=== PATIENT | male | born 1990 | race Caucasian/White ===

== ENCOUNTER 2022-08-27 02:00 | Emergency (ER) | payer OTHER ==
[2022-08-27] MEDS ORDERED: KETOROLAC 30 MG/ML INJ ONE (02:26)
[2022-08-27 02:55] LABS: Protime INR 1.34
[2022-08-27 02:57] LABS: Hematocrit 32.5 % (39.6-49.0); Lymphocytes % 31.4 % (15.3-44.8); MCV 80.8 fL (80-100); MPV 11.5 fL (7.6-11.3); RBC Red Blood Cell Count 4.02 M/uL (4.33-5.43)
[2022-08-27 03:17] LABS: Bilirubin Direct 0.8 mg/dL (0-0.2); Bilirubin Indirect, Calculated 0.9 mg/dL (0.2-0.8); Bilirubin Total 1.7 mg/dL (0.2-1.0); Magnesium 1.9 mg/dL (1.6-2.4); Potassium 3.9 mEq/L (3.5-5.1); Protein, Total 7.1 g/dL (6.4-8.2); Troponin High Sensitivity 5.7 pg/mL (<58.9)
[2022-08-27 04:06] LABS: Blood Morphology Comment NOT SEEN (NOT SEEN); Platelet Estimate DECR; White Blood Cell Scan OK (OK)
[2022-08-27] MEDS ORDERED: HYDROCORTISONE SUC 100 MG INJ ONE (05:49)
[2022-08-27] MEDS ORDERED: NA CHLORIDE 0.9% 500 ML ONE (05:50)
[2022-08-27] MEDS ORDERED: ACETAMINOPHEN 500 MG TAB ONE (05:50)
[2022-08-27] MEDS ORDERED: DIPHENHYDRAMINE 25 MG TAB/CAP ONE (05:50)
--- NOTE | 2022-08-27 06:06 | ER ---
Nurse's Notes [facility] Name: Anthony Castañeda Age: 31 yrs Sex: Male : 1990 Arrival Date: 08/27/2022 Time: 02:00 Bed 2 Private MD: Diagnosis: Thrombocytopenia, unspecified;Antiphospholipid syndrome;Atypical chest pain Presentation: 08/27 02:06 Chief complaint: EMS states: chest pain that radiates to right arm and left leg pain as6 that started around 2100 on 08/26. Coronavirus screen: At this time, the client does not indicate any symptoms associated with coronavirus-19. Ebola Screen: No symptoms or risks identified at this time. Initial Sepsis Screen: Does the patient meet any 2 criteria? No. Patient's initial sepsis screen is negative. Does the patient have a suspected source of infection? No. Patient's initial sepsis screen is negative. Risk Assessment: Do you want to hurt yourself or someone else? Patient reports no desire to harm self or others. Onset of symptoms was August 26, 2022. 02:06 Acuity: YULIET 3 as6 02:06 Method Of Arrival: EMS: [facility] as6 Historical: - Allergies: 02:06 No Known Allergies; as6 - PMHx: 02:06 thrombocytopenia; ITP; blood clots; as6 - PSHx: 02:06 Appendectomy; as6 - Immunization history:: Client reports having NOT received the Covid vaccine. - Social history:: Smoking status: Patient/guardian denies using tobacco. - Family history:: not pertinent. Screenin:11 [facility] ED Fall Risk Assessment (Adult) Score/Fall Risk Level 0 - 2 = Low Risk. Abuse as6 screen: Denies threats or abuse. Denies injuries from another. Nutritional screening: No deficits noted. Tuberculosis screening: No symptoms or risk factors identified. Assessment: 02:05 General: Appears in no apparent distress. uncomfortable, Behavior is calm, cooperative, jj7 appropriate for age. Pain: Complains of pain in xiphoid area and mid-sternal area Pain radiates to diaphragm, right lateral anterior chest and right breast. 06:22 General: Appears in no apparent distress. Behavior is calm, cooperative. Neuro: Level kd3 of Consciousness is awake, alert, obeys commands, Oriented to person, place, time, situation. Cardiovascular: Patient's skin is warm and dry. Respiratory: Airway is patent Trachea midline Respiratory effort is even, unlabored, Respiratory pattern is regular, symmetrical. GI: Abdomen is non-distended. 07:21 General: Pt awaiting transfer due to platelets not being ready. EMS waiting in the room kd3 with the patient to transfer. Platelets are being started now. will transfer patient while platelets are running. . Vital Signs: 02:06 BP 147 / 77; Pulse 96; Resp 15 S; Temp 98.5(O); Pulse Ox 100% on R/A; Weight 108.86 kg as6 (R); Height 5 ft. 5 in. (R); Pain 6/10; 03:06 BP 138 / 77; Pulse 89; Resp 16; Pulse Ox 98% on R/A; kd3 04:41 BP 138 / 90; Pulse 86; Resp 17; Pulse Ox 97% on R/A; kd3 05:50 BP 107 / 69; Pulse 86; Resp 19; Pulse Ox 98% on R/A; kd3 06:23 BP 129 / 76; Pulse 85; Resp 19; Pulse Ox 96% on R/A; kd3 02:06 Body Mass Index 39.94 (108.86 kg, 165.1 cm) as6 02:06 Pain Scale: Adult as6 ED Course: 02:05 No provider procedures requiring assistance completed. jj7 02:06 Patient arrived in ED. as6 02:06 Luca Adame MD is Attending Physician. sp4 02:06 Arm band placed on. as6 02:11 Triage completed. as6 02:11 Bed in low position. Call light in reach. Side rails up X 1. Client placed on as6 continuous cardiac and pulse oximetry monitoring. NIBP monitoring applied. 02:16 Michael Mckinnon RN is Primary Nurse. jj7 02:21 Inserted saline lock: 20 gauge in right antecubital area, using aseptic technique. as6 Blood collected. 02:30 Warm blanket given. jj7 02:35 XRAY Chest (1 view) In Process Unspecified. EDMS Administered Medications: 02:28 Drug: Ketorolac IVP 30 mg Route: IVP; Site: right antecubital; jj7 06:24 Follow up: Response: No adverse reaction kd3 05:49 Drug: Solu-CORTEF IVP 100 mg Route: IVP; Site: right antecubital; kd3 06:23 Follow up: Response: No adverse reaction kd3 05:49 Drug: Acetaminophen PO 1000 mg Route: PO; kd3 06:23 Follow up: Response: No adverse reaction kd3 05:49 Drug: diphenhydrAMINE PO 25 mg Route: PO; kd3 06:23 Follow up: Response: No adverse reaction kd3 Medication: 02:05 VIS not applicable for this client. jj7 Outcome: 06:06 ER care complete, transfer ordered by sp4 07:30 Patient left the ED. ph Signatures: Dispatcher [employer] EDKaela Saldana RN RN ph Ronnie Echavarria RN RN as6 Naomy Agustin RN RN kd3 Michael Mckinnon RN RN jj7 Luca Adame MD MD sp4
--- NOTE | 2022-08-27 06:07 | EDPHYS ---
Physician Documentation [facility] Name: Anthony Castañeda Age: 31 yrs Sex: Male : 1990 Arrival Date: 08/27/2022 Time: 02:00 Bed 2 Private MD: ED Physician Luca Adame HPI: 08/27 02:07 This 31 yrs old Other Male presents to ER via Unassigned with complaints of chest pain .sp4 05:25 31-year-old male with history of antiphospholipid syndrome and idiopathic sp4 thrombocytopenia presents with EMS with acute onset of right-sided stabbing type chest pain. . 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 Patient has been admitted to [facility] in [place], also has been admitted to the hospital in [facility], and also has history of prior admission to [facility] in [place]. In 2013 patient was diagnosed with thrombocytopenia at that time his platelet level was 14,000. 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 And in the past he was managed with warfarin and also in the past he was managed with p.o. lactulose. He has not been on any of his medications for over 1 year. Also he cannot recall any other medicines but states he has been on multiple medications in the past.. Patient has moved into [facility] approximately 1 month ago, this morning he developed right-sided stabbing type chest pain and arrived here with EMS. Patient reports mild bleeding from his gums but denied bleeding from any other body location. He does report history of easy bruising.. Historical: - Allergies: 02:06 No Known Allergies; as6 - PMHx: 02:06 thrombocytopenia; ITP; blood clots; as6 - PSHx: 02:06 Appendectomy; as6 - Immunization history:: Client reports having NOT received the Covid vaccine. - Social history:: Smoking status: Patient/guardian denies using tobacco. - Family history:: not pertinent. ROS: 05:27 Constitutional: Negative for fever, chills, and weight loss, Eyes: Negative for injury, sp4 pain, redness, and discharge, ENT: Negative for injury, pain, and discharge, positive for mild bleeding from the gums. Neck: Negative for injury, pain, and swelling, Cardiovascular: Negative for palpitations, and edema, positive for right-sided stabbing type chest pain. Respiratory: Negative for shortness of breath, cough, wheezing, and pleuritic chest pain, Abdomen/GI: Negative for abdominal pain, nausea, vomiting, diarrhea, and constipation, Back: Negative for injury and pain, : Negative for injury, bleeding, discharge, and swelling, MS/Extremity: Negative for injury and deformity, Skin: Negative for injury, rash, and discoloration, Neuro: Negative for headache, weakness, numbness, tingling, and seizure, Psych: Negative for depression, anxiety, Allergy/Immunology: Negative for hives, rash, and allergies Endocrine: Negative for neck swelling, polydipsia, polyuria, polyphagia, and weight changes Hematologic/Lymphatic: Negative for swollen nodes, abnormal bleeding, and unusual bruising Exam: 05:27 Constitutional: This is a well developed, well nourished patient who is awake, alert, sp4 and in no acute distress. This is overweight male chronic left lower extremity swelling and discoloration indicative of venous stasis skin changes. Mild bleeding from multiple sites on the gums. Otherwise no signs of active bleeding Head/Face: Normocephalic, atraumatic. Eyes: Pupils equal round and reactive to light, extra-ocular motions intact. Lids and lashes normal. Conjunctiva and sclera are not injected. Cornea within normal limits. Periorbital areas with no swelling, redness, or edema. ENT: Nares patent. No nasal discharge, no septal abnormalities noted. Tympanic membranes are normal and external auditory canals are clear. Oropharynx with no redness, swelling, or masses, exudates, or evidence of obstruction, uvula midline. Mucous membranes moist. Neck: Trachea midline, no thyromegaly or masses palpated, and no cervical lymphadenopathy. Supple, full range of motion without nuchal rigidity, or vertebral point tenderness. Chest/axilla: Normal chest wall appearance and motion. Nontender with no deformity. No lesions are appreciated. Cardiovascular: Regular rate and rhythm with a normal S1 and S2. No gallops, murmurs, or rubs. Normal PMI, no JVD. No pulse deficits. Respiratory: Lungs have equal breath sounds bilaterally, clear to auscultation and percussion. No rales, rhonchi or wheezes noted. No increased work of breathing, no retractions or nasal flaring. Abdomen/GI: Soft, non-tender, with normal bowel sounds. No distension or tympany. No guarding or rebound. No evidence of tenderness throughout. Back: No spinal tenderness. No costovertebral tenderness. Skin: Warm, dry with normal turgor. Normal color with no rashes, and no evidence of cellulitis. Positive left lower extremity venous stasis skin changes. MS/ Extremity: Pulses equal, no cyanosis. Neurovascular intact. Full, normal range of motion. Left lower extremity swelling that appears chronic with left lower extremity venous skin stasis venous stasis skin changes Neuro: Awake and alert, GCS 15, oriented to person, place, time, and situation. Cranial nerves II-XII grossly intact. Motor strength 5/5 in all extremities. Sensory grossly intact. Psych: Awake, alert, with orientation to person, place and time. Behavior, mood, and affect are within normal limits 05:27 ECG was reviewed by the Attending Physician. EKG time 0 219. There is normal sinus sp4 rhythm at the rate of 96, no ST elevation or depression, no ectopy. Vital Signs: 02:06 BP 147 / 77; Pulse 96; Resp 15 S; Temp 98.5(O); Pulse Ox 100% on R/A; Weight 108.86 kg as6 (R); Height 5 ft. 5 in. (R); Pain 6/10; 03:06 BP 138 / 77; Pulse 89; Resp 16; Pulse Ox 98% on R/A; kd3 04:41 BP 138 / 90; Pulse 86; Resp 17; Pulse Ox 97% on R/A; kd3 05:50 BP 107 / 69; Pulse 86; Resp 19; Pulse Ox 98% on R/A; kd3 06:23 BP 129 / 76; Pulse 85; Resp 19; Pulse Ox 96% on R/A; kd3 02:06 Body Mass Index 39.94 (108.86 kg, 165.1 cm) as6 02:06 Pain Scale: Adult as6 MDM: 02:07 Patient medically screened. sp4 04:28 ED course: Chest x-ray reveals no acute cardiopulmonary disease. EKG is normal today. sp4 Platelets are very low 7. . 05:41 Differential Diagnosis altered mental status, flu. Data reviewed: vital signs, nurses sp4 notes. 05:44 Consideration of Admission/Observation Patient was admitted/placed on observation. sp4 Escalation of care including admission/observation considered. Management of patient was discussed with the following: Order Editor: Admitting hospitalist at [facility].. ED course: Patient has history of antiphospholipid syndrome and also idiopathic thrombocytopenia. Patient is not able to recall any other diagnosis from his past. Patient has history of drug abuse which may have contributed to his thrombocytopenia. Today platelets are 7000 and this is quite low. Patient is have been some mild bleeding from the gingiva at multiple sites. No sign of active bleeding out of anywhere else. Hemoglobin is reasonable at 10.9. There is no prior labs for comparison. Otherwise patient has mild elevation of alkaline phosphatase at 283. Patient has elevated bilirubin 1.7. INR 1.34. Normal EKG, unremarkable chest x-ray, normal troponin.. ED course: Secondary to low severe thrombocytopenia patient warrants transfusion for consultation with hematology and further work-up. Patient will be transfused platelets prior to transfer to ensure stability.. 06:04 ED course: Patient was accepted for transfer by [facility]. Patient will get sp4 2 units of platelets prior to transfer. Hemodynamically stable.. 08/27 02:07 Order name: Basic Metabolic Panel; Complete Time: 06:25 sp4 08/27 02:07 Order name: CBC with Diff; Complete Time: 04:22 sp4 08/27 02:07 Order name: LFT's; Complete Time: 06:25 sp4 08/27 02:07 Order name: Magnesium; Complete Time: 06:25 sp4 08/27 02:07 Order name: NT PRO-BNP; Complete Time: 06:25 sp4 08/27 02:07 Order name: PT-INR; Complete Time: 04: sp4 08/27 02:07 Order name: Troponin HS; Complete Time: 06:25 sp4 08/27 03:07 Order name: CBC Smear Scan; Complete Time: 04:22 EDMS 08/27 04:47 Order name: Bb Add On as6 08/27 04:47 Order name: Type And Screen as6 08/27 05:00 Order name: Platelets, Leukored Pheresis EDMS 08/27 05:53 Order name: C-Reactive Protein; Complete Time: 06:25 EDMS 08/27 06:56 Order name: ABO/RH no charge EDMS 08/27 02:07 Order name: XRAY Chest (1 view) sp4 08/27 02:07 Order name: EKG; Complete Time: 02:08 sp4 08/27 02:07 Order name: Cardiac monitoring; Complete Time: 02:21 sp4 08/27 02:07 Order name: EKG - Nurse/Tech; Complete Time: 02:21 sp4 08/27 02:07 Order name: IV Saline Lock; Complete Time: 02:21 sp4 08/27 02:07 Order name: Labs collected and sent; Complete Time: 02: sp4 08/27 02:07 Order name: O2 Per Protocol; Complete Time: 02:21 sp4 08/27 02:07 Order name: O2 Sat Monitoring; Complete Time: 02: sp4 EC:27 Rate is 96 beats/min. Rhythm is regular, Normal Sinus Rhythm. QRS [place] is Normal. TN sp4 interval is normal. QRS interval is normal. QT interval is normal. No Q waves. T waves are Normal. No ST changes noted. Clinical impression: No evidence of ischemia. Interpreted by me. Administered Medications: 02:28 Drug: Ketorolac IVP 30 mg Route: IVP; Site: right antecubital; jj7 06:24 Follow up: Response: No adverse reaction kd3 05:49 Drug: Solu-CORTEF IVP 100 mg Route: IVP; Site: right antecubital; kd3 06:23 Follow up: Response: No adverse reaction kd3 05:49 Drug: Acetaminophen PO 1000 mg Route: PO; kd3 06:23 Follow up: Response: No adverse reaction kd3 05:49 Drug: diphenhydrAMINE PO 25 mg Route: PO; kd3 06:23 Follow up: Response: No adverse reaction kd3 Disposition Summary: 08/27/22 06:06 Transfer Ordered Transfer Location: [facility] sp4 Reason: Higher level of care sp4 Condition: Stable sp4 Problem: new sp4 Symptoms: have improved sp4 Accepting Physician: [facility]'s physician.(08/27/22 07:30) ph Diagnosis - Thrombocytopenia, unspecified sp4 - Antiphospholipid syndrome sp4 - Atypical chest pain sp4 Forms: - Medication Reconciliation Form sp4 - SBAR form sp4 Signatures: Dispatcher [employer] EDMS Kaela Frances RN RN Ronnie Nash, [place] RN as6 Naomy Agustin RN RN kd3 Michael Mckinnon RN RN jj7 Luca Adame MD MD sp4 Corrections: (The following items were deleted from the chart) 05:53 05:42 C-REACTIVE PROTEIN+C.LAB.BRZ ordered. EDMO EDMS 07:30 06:06 [facility] physician. sp4 ph
[2022-08-27 06:09] LABS: C-Reactive Protein 10.6 mg/L (<3.00)
[2022-08-27] MEDS ORDERED: NA CHLORIDE 0.9% 250 ML ONE (07:16)
[2022-08-27 07:40] VITALS: TEMP 98.5
[2022-08-27 07:58] VITALS: BP 129/76; O2SAT 96
--- NOTE | 2022-08-27 11:12 | RAD REPORT ---
EXAM DESCRIPTION: RAD - Chest Single View - 08/27/2022 2:34 am CLINICAL HISTORY: CHEST PAIN TECHNIQUE: AP chest COMPARISON: None available for comparison FINDINGS: CHEST: Heart: The cardiomediastinal silhouette is within normal limits. Lungs: No focal consolidation. Mediastinum: Unremarkable Pleura: No appreciable effusion. No pneumothorax. Bones: Intact IMPRESSION: No acute cardiopulmonary disease. Electronically signed by: Johnathon Gillespie MD 08/27/2022 3:04 AM CDT Due to temporary technical issues with the PACS/Fluency reporting system, reports are being signed by the in house radiologists without review as a courtesy to insure prompt reporting. The interpreting radiologist is fully responsible for the content of the report.
--- NOTE | 2022-08-27 17:40 | EKG ---
Test Date: 2022-08-27 Test Time: 02:19:04 Dope Worker: MEASUREMENT RESULTS: Intervals: Rate: 96 WA: 142 QRSD: 90 QT: 356 QTc: 449 Jber: P: 40 WA: 142 QRS: 19 T: 38 INTERPRETIVE STATEMENTS: Normal sinus rhythm Normal ECG No previous ECG available for comparison Electronically Signed On 08-27-22 17:39:07 CDT by Juarez Gallardo
== END 2022-08-27 07:30 | disposition short-term general hospital (02) ==
LOC: ER 02:00
DX: R07.89 Other chest pain (principal); D69.6 Thrombocytopenia, unspecified; D68.61 Antiphospholipid syndrome
CPT/HCPCS: 93005; 85025; 80048; 36415; 86900; 83735; 86850; 85610; 86901; 80076; 84484; 83880; 86140; 71045; 96375; 96374; 99284; J1720; J7050; J7040; P9073

== ENCOUNTER 2022-09-07 20:46 | Emergency (ER) | payer OTHER ==
--- OUTSIDE RECORDS SUMMARY | 2022-09-07 21:03 | XMS REPORT | Continuity of Care Document ---
:1990 Author Organization [facility] t Address [address] [place] [address] Care Team Providers Name Role Phone DEVANTE WILKERSON Attending Clinician Unavailable CYNDEE RUBIN Attending Clinician Unavailable MÓNICA CARMEN Attending Clinician Unavailable Cyndee Rubin MD Attending Clinician Devante Wilkerson MD Attending Clinician Mónica Carmen MD Attending Clinician DEVANTE WILKERSON Admitting Clinician Unavailable Payers Payer Name Policy Type Policy Number Effective Date Expiration Date Lori zurita MEDICARE A B [id number] 2014 00:00:00 Problems Condition Condition Condition Status Onset Resolution Last Treating Co mments Source Name Details Category Date Date Treatment Clinician Date Thrombocyt Thrombocyt Disease [facility] Allergies, Adverse Reactions, Alerts Allergy Allergy Status Severity Reaction(s) Onset Inactive Treating Comm ents Source Name Type Date Date Clinician NO KNOWN Allergy Active [facility] Family History Family Member Diagnosis Comments Start Date Stop Date Source Maternal grandfather Heart attack [facility] Paternal grandfather Heart attack [facility] Social History Social Habit Start Date Stop Date Quantity Comments Source History of tobacco Current smoker I [facility] Alcohol intake 2022-08-27 2022-08-27 [facility]00 of alcohol [facility] (finding) Alcohol Comment 2022-08-27 2022-08-27 1 drink per week [facility] 00:00:00 00:00:00 [facility] Cigarettes smoked 2022-08-27 2022-08-[address] [facility] current (pack per 00:00:00 00:00:00 Medical Center day) - Reported Cigarette 2022-08-27 2022-08-[address] [facility] pack-years 00:00:00 00:00:00 [facility] Tobacco use and 2022-08-27 2022-08-27 Smokeless tobacco [facility] exposure 00:[facility]00 00:00:00 non-user [facility] Center Sex Assigned At [birth year] [facility] k[facility] 00:00:00 00:00:00 [facility] Smoking Status Start Date Stop Date Source Ex-smoker 2022-08-27 00:00:00 2022-08-27 00:00:00 [facility] Medications Ordered Filled Start Stop Current Ordering Indication Dosage Frequency Signature Comments Components Source Medication Medication Date Date Medication? Clinician (SIG) Name Name enoxaparin 2022- Yes 110mg Inject 0.[address] (LOVENOX) 09-02 08-27 mLs (110 [facility] 120 mg/0.8 00:00: 23:59 mg total) M edical mL Syrg 00 :00 [facility] usly every 12 (twelve) hours for 60 days. Vital Signs Vital Name Observation Time Observation Value Comments Source HEIGHT 2022-08-27 08:38:00 165.1 cm WEIGHT 2022-08-27 08:38:00 108.863 kg HEIGHT 2022-08-27 08:38:00 165.1 cm WEIGHT 2022-08-27 08:38:00 108.863 kg HEIGHT 2022-08-27 08:38:00 165.1 cm WEIGHT 2022-08-27 08:38:00 108.863 kg Heart rate 2022-09-02 14:02:01 105 /min [facility] Respiratory rate 2022-09-02 14:02:01 18 /min [facility] Oxygen saturation in 2022-09-02 14:02:01 96 /min [facility] Arterial blood by Medical Ce nter Pulse oximetry Body temperature 2022-09-02 14:01:24 36.61 Megan [facility] Systolic blood 2022-09-02 14:01:00 139 mm[Hg] [facility] Diastolic blood 2022-09-02 14:01:00 75 mm[Hg] [facility] Body height 2022-08-27 08:38:00 165.1 cm [facility] Body weight 2022-08-27 08:38:00 108.863 kg [facility] BMI 2022-08-27 08:38:00 39.94 kg/m2 [facility] Procedures Procedure Date / Time Performed Performing Clinician [facility] e POCT-GLUCOSE METER 2022-09-02 18:36:00 Mónica Carmen [facility] POCT-GLUCOSE METER 2022-09-02 10:13:00 Mónica Carmen [facility] CT BRAIN WITHOUT IV 2022-09-02 09:59:46 Devante Wilkerson [facility] POCT-GLUCOSE METER 2022-09-01 21:06:00 Devante Wilkerson [facility] CBC W/PLT COUNT & AUTO 2022-09-01 16:55:00 Devante Wilkerson [facility] COMPREHENSIVE METABOLIC 2022-09-01 16:55:00 Jen Wilkerson [facility] MAGNESIUM 2022-09-01 16:55:00 Devante Wilkerson [facility] PHOSPHORUS 2022-09-01 16:55:00 Devante Wilkerson [facility] CBC W/PLT COUNT & AUTO 2022-09-01 16:55:00 Devante Wilkerson [facility] POCT-GLUCOSE METER 2022-09-01 09:11:00 Devante Wilkerson [facility] POCT-GLUCOSE METER 2022-08-31 21:42:00 Elio Wilkersonendra [facility] POCT-GLUCOSE METER 2022-08-31 18:17:00 Pandapriteshdheeraj [facility] POCT-GLUCOSE METER 2022-08-31 14:31:00 [facility] 2022-08-31 12:47:00 Diamondlaneydheeraj [facility] BASIC METABOLIC PANEL 2022-08-31 04:33:00 [facility] (HE[facility]GRAM ONLY) 2022-08-31 04:33:00 JoeDevante [facility] POCT-GLUCOSE METER 2022-08-30 22:40:00 Pandapriteshdheeraj [facility] POCT-GLUCOSE METER 2022-08-30 17:28:00 Pandapriteshdheeraj [facility] POCT-GLUCOSE METER 2022-08-30 11:08:00 [facility]apriteshdheeraj [facility] POCT-GLUCOSE METER 2022-08-30 08:38:00 Pandapriteshdheeraj [facility] COMPREHENSIVE METABOLIC 2022-08-30 05:17:00 [facility] W/[facility]T [facility] & AUTO 2022-08-30 05:17:00 Srikanth [facility] PROTHROMBIN TIME/INR 2022-08-30 05:17:00 Srikanth [facility] APTT 2022-08-30 05:17:00 Srikanth [facility] CBC W/PLT COUNT & AUTO 2022-08-30 05:17:00 Srikanth [facility] POCT-GLUCOSE METER 2022-08-29 22:49:00 Joe [facility] POCT-GLUCOSE METER 2022-08-29 17:27:00 [facility] POCT-GLUCOSE METER 2022-08-29 11:06:00 Joe [facility] POCT-GLUCOSE METER 2022-08-29 07:30:00 [facility] COMPREHENSIVE METABOLIC 2022-08-29 04:48:00 [facility] CBC W/PLT COUNT & AUTO 2022-08-29 04:48:00 [facility], [facility] PROTHROMBIN TIME/INR 2022-08-29 04:48:00 [facility], [facility] APTT 2022-08-29 04:48:00 [facility] HAPTOGLOBIN 2022-08-29 04:48:00 [facility] CBC W/PLT COUNT & AUTO 2022-08-29 04:48:00 [facility], [facility] POCT-GLUCOSE METER 2022-08-28 21:36:00 Joe [facility] POCT-GLUCOSE METER 2022-08-28 17:50:00 Joe [facility] POCT-GLUCOSE METER 2022-08-28 11:25:00 [facility] VITAMIN B12 2022-08-28 10:41:00 [facility] POCT-GLUCOSE METER 2022-08-28 07:30:00 Joe [facility] COMPREHENSIVE METABOLIC 2022-08-28 04:27:00 [facility], [facility] CBC W/PLT COUNT & AUTO 2022-08-28 04:27:00 Udke [facility] PROTHROMBIN TIME/INR 2022-08-28 04:27:00 Windy [facility] APTT 2022-08-28 04:27:00 Srikanth [facility] LACTATE DEHYDROGENASE 2022-08-28 04:27:00 [facility]anth [facility] D-DIMER 2022-08-28 04:27:00 Srikanth [facility] HAPTOGLOBIN 2022-08-28 04:27:00 Srikanth [facility] HEMOGLOBIN A1C 2022-08-28 04:27:00 Srikanth [facility] CBC W/PLT COUNT & AUTO 2022-08-28 04:27:00 [facility] CT ABDOMEN/PELVIS WITH IV 2022-08-28 03:26:43 Cinthya [facility] CONTRAST [facility] HIGH SENSITIVITY TROPONIN 2022-08-27 20:32:[address] [place] [address] [facility] I [facility] ECG 12-LEAD 2022-08-27 15:30:04 Jaylyn [facility] ECG 12-LEAD 2022-08-27 15:30:04 Unknown, [facility] FIBRINOGEN 2022-08-27 14:43:00 Cinthya [facility] LACTATE DEHYDROGENASE 2022-08-27 14:43:00 Cinthya [facility] PROTHROMBIN TIME/INR 2022-08-27 14:43:00 [facility] APTT 2022-08-27 14:43:00 Srikanth [facility] HIGH SENSITIVITY TROPONIN 2022-08-27 14:43:00 Cinthya [facility] HC LAB HIV-1 AG W/HIV-1&2 2022-08-27 14:43:00 Cinthya [facility] AB [facility] RPR 2022-08-27 14:43:00 Jaylyn [facility] HEPATITIS PANEL, ACUTE 2022-08-27 14:43:00 Srikanth [facility] PERIPHERAL BLOOD SMEAR - 2022-08-27 14:43:00 [facility]anth [facility] PATHOLOGIST REVIEW [facility] Cente r HAPTOGLOBIN 2022-08-27 14:43:00 Srikanth [facility] (MANUAL DIFFERENTIAL) 2022-08-27 14:43:00 Devante Wilkerson [facility] CTA CHEST FOR PULMONARY 2022-08-27 10:50:00 Scottie, [facility] EMBOLUS [facility] CBC W/PLT COUNT & AUTO 2022-08-27 08:43:00 Scottie, [facility] BASIC METABOLIC PANEL 2022-08-27 08:43:00 Scottie, [facility] HIGH SENSITIVITY TROPONIN 2022-08-27 08:43:00 Scottie, [facility] B-TYPE NATRIURETIC FACTOR 2022-08-27 08:43:00 [facility], [facility] (BNP) [facility] D-DIMER 2022-08-27 08:43:00 Scottie, [facility] CBC W/PLT COUNT & AUTO 2022-08-27 08:43:00 Scottie, [facility] DIFFERENTIAL [facility] EKG-SCANNED 2022-08-27 00:00:00 ProviderJake [facility] es Scanning [facility] Plan of Care Planned Activity Planned Date Details Comments Source Future Scheduled 2023-08-28 Tobacco Cessation [facility] Test 00:00:00 Counseling and Medical Cente r Screening (12+) [code = Tobacco Cessation Counseling and Screening (12+)] Future Scheduled 2022-11-[address] [facility] Test 00:00:00 (Season Ended) [code Medical Center = Influenza Vaccine (Season Ended)] Future Scheduled 2022-03-[address] [facility] Test 00:00:00 (12+) [code = Medical Center DEPRESSION SCREENING (12+)] Future Scheduled 2015-06-[address] [facility] Test 00:00:00 WELLNESS (YEAR 2 or Medical Center FIRST YEAR if no IPPE) [code = MEDICARE ANNUAL WELLNESS (YEAR 2 or FIRST YEAR if no IPPE)] Future Scheduled [address] [facility] Test 00:00:00 (procedure) [code = Medical Center [id number]] Future Scheduled 2009 DTAP/TDAP/TD VACCINES [facility] Test 00:00:00 (1 - Tdap) [code = Medical C enter DTAP/TDAP/TD VACCINES (1 - Tdap)] Future Scheduled 1991-06-08 COVID-19 VACCINE (#1) [facility] Test 00:00:00 [code = COVID-[address] VACCINE (#1)] Encounters Start End Encounter Admission Attending Care Care Encounter Source Date/Time Date/Time Type Type Clinicians Facility Department ID 2022-09-02 [id number] 09:43:54 , DEVANTE 2022-08-28 [facility] [id number] [facility] 17:57:05 , DEVANTE 2022-08-27 2022-09-02 Inpatient ER HEMA CARMEN Emergency [id number] [facility] 08:24:00 18:47:00 [place] 2022-08-27 2022-09-02 [facility] [id number] 08:24:00 18:47:00 Encounter Devante Wilkerson [facility] 2022-08-28 2022-08-28 [facility] [id number] [facility] 02:27:51 02:27:51 , DEVANTE 2022-08-27 2022-08-27 Emergency ER CYNDEE RUBIN [facility] [id number] SLE 09:36:41 09:36:41 2022-08-27 2022-08-[address] [facility] [id number] [facility] 00:00:00 00:00:00 [facility] Results Test Description Test Time Test Comments Results Result Comments Source POC-Glucose meter 2022-09-02 18:48:36 Test Item Value Reference Range Interpretation Comme nts POC-Glucose Meter (test code = 138 mg/dL 70-110 H : TESTED AT [facility] [address]) [facility], [address]: [employer] Metal [employer] Supervisor/Techni miles ID = [id number] for CHAIMJULIUS DARBY Lab Interpretation (test code = Abnormal 87153-0) [facility] [id number] 18:48:36 Test Item Value Reference Range Interpretation Comments POC-GLUCOSE METER 138 mg/dL 70-110 H : TESTED A T [facility] [address] (BEAKER) (test code [facility], = 1538) [address]: [employer] Supervisor/Techni miles ID = [id number] for JULIUS RUFFIN CT BRAIN WITHOUT IV [id number] 13:07:43 [facility] : 1990 Sex: MCTBRAIN WITHOUT IV CONTRASTCLINICAL INDICATION: Mental status change, unknown causeCOMPARISON: NoneTECHNIQUE: Noncontrast axial CT imaging of the brain, skull and face.Coronal and sagittal reformats are provided.DOSE REDUCTION: Dose modulation, iterative reconstruction, and/orweight-based adjustment of the mA/kV was utilized to reduce theradiation dose to as low as reasonably achievable.FINDINGS:No intr acranial hemorrhage, midline shift or mass effect. Midline structures are normally developed. Low lying cerebral tonsils.No hydrocephalus.Orbits are within normal limits.No obstructive paranasal sinus disease. No calvarial fracture.No significant soft tissue swelling.IMPRESSION:1. No acute intracranial findings2. Low-lying cerebellar tonsils.Electronically Signed By: Amadou Lombardi09/02/2022 13:09 CDTWorkstation Name: [id number] 10:24:59 Test Item Value Reference Range Interpretation Comments POC-GLUCOSE METER 108 mg/dL 70-110 : TESTED A T [facility] [address] (BEAKER) (test code [facility], = 1538) [address]: [employer] Supervisor/Techni miles ID = [id number] for JACKYCathleen ALICIA ESCUDEROJULIUS POCT-GLUCOSE [id number] 21:19:12 Test Item Value Reference Range Interpretation Comments POC-GLUCOSE METER 114 mg/dL 70-110 H : TESTED A T [facility] [address] (BEAKER) (test code = KATTY Jackson [facility], 1538) [address]: [employer] Supervisor/Techni miles ID = [id number] for ESA SHOOK COMPREHENSIVE METABOLIC [id number] 17:33:00 Test Item Value Reference Range Interpretation Comments TOTAL PROTEIN 7.0 gm/dL 6.0-8.3 (BEAKER) (test code = 770) ALBUMIN (BEAKER) 3.5 g/dL 3.5-5.0 (test code = 1145) ALKALINE 203 U/L 40-150 H PHOSPHATASE (BEAKER) (test code = 346) BILIRUBIN TOTAL 1.8 mg/dL 0.2-1.2 H (BEAKER) (test code = 377) SODIUM (BEAKER) 138 meq/L 136-145 (test code = 381) POTASSIUM (BEAKER) 3.7 meq/L 3.5-5.1 (test code = 379) CHLORIDE (BEAKER) 108 meq/L 98-107 H (test code = 382) CO2 (BEAKER) (test 21 meq/L 22-29 L code = 355) BLOOD UREA 25 mg/dL 7-21 H NITROGEN (BEAKER) (test code = 354) CREATININE 0.83 mg/dL 0.57-1.25 (BEAKER) (test code = 358) GLUCOSE RANDOM 104 mg/dL 70-105 (BEAKER) (test code = 652) CALCIUM (BEAKER) 8.0 mg/dL 8.4-10.2 L (test code = 697) AST (SGOT) 22 U/L 5-34 (BEAKER) (test code = 353) ALT (SGPT) 33 U/L 6-55 (BEAKER) (test code = 347) EGFR (BEAKER) 121 Interpretatio n of eGFR (test code = 1092) mL/min/1.[address] age Description sq m Result G1 Saba l or high >=90 G2 Mildly decreased 60-89 G3a Mildl y to moderately 45-5 9 G3b Moderately to s everely 30-44 G4 Severl y decreased 15-29 G5 Kidney failure <15Reported eGF R is based on the CKD-EPI 2020 equation that d oes not use a race coefficientEsti mated GFR is not as accur ate as Creatinine Allie cardona in predicting glom erular filtration rate . Estimated GFR is not appl icable for dialysis patien ts [employer] Supervisor ID - ADMINSpecimen slightly [id number] 17:32:59 Test Item Value Reference Range Interpretation Comments MAGNESIUM (BEAKER) (test code = 2.2 mg/dL 1.6-2.6 627) [employer] Supervisor ID - [id number] 17:32:59 Test Item Value Reference Range Interpretation Comments PHOSPHORUS (BEAKER) (test code = 3.9 mg/dL 2.3-4.7 604) [employer] Supervisor ID - ADMINCBC W/PLT COUNT & AUTO [id number] 17:13:50 Test Item Value Reference Range Interpretation Comments WHITE BLOOD CELL COUNT (BEAKER) 5.9 K/ L 3.5-10.5 (test code = 775) RED BLOOD CELL COUNT (BEAKER) 4.83 M/ L 4.63-6.08 (test code = 761) HEMOGLOBIN (BEAKER) (test code = 12.6 GM/DL 13.7-17.5 L 410) HEMATOCRIT (BEAKER) (test code = 37.9 % 40.1-51.0 L 411) MEAN CORPUSCULAR VOLUME (BEAKER) 79 fL 79-92 (test code = 753) MEAN CORPUSCULAR HEMOGLOBIN 26.1 pg 25.7-32.2 (BEAKER) (test code = 751) MEAN CORPUSCULAR HEMOGLOBIN CONC 33.2 GM/DL 32.3-36.5 (BEAKER) (test code = 752) RED CELL DISTRIBUTION WIDTH 15.1 % 11.6-14.4 H (BEAKER) (test code = 412) PLATELET COUNT (BEAKER) (test 122 K/CU MM 150-450 L code = 756) MEAN PLATELET VOLUME (BEAKER) 11.4 fL 9.4-12.4 (test code = 754) NUCLEATED RED BLOOD CELLS 0 /100 WBC 0-0 (BEAKER) (test code = 413) NEUTROPHILS RELATIVE PERCENT 54 % (BEAKER) (test code = 429) LYMPHOCYTES RELATIVE PERCENT 37 % (BEAKER) (test code = 430) MONOCYTES RELATIVE PERCENT 7 % (BEAKER) (test code = 431) EOSINOPHILS RELATIVE PERCENT 1 % (BEAKER) (test code = 432) BASOPHILS RELATIVE PERCENT 0 % (BEAKER) (test code = 437) NEUTROPHILS ABSOLUTE COUNT 3.16 K/ L 1.78-5.38 (BEAKER) (test code = 670) LYMPHOCYTES ABSOLUTE COUNT 2.19 K/ L 1.32-3.57 (BEAKER) (test code = 414) MONOCYTES ABSOLUTE COUNT (BEAKER) 0.44 K/ L 0.30-0.82 (test code = 415) EOSINOPHILS ABSOLUTE COUNT 0.07 K/ L 0.04-0.54 (BEAKER) (test code = 416) BASOPHILS ABSOLUTE COUNT (BEAKER) 0.00 K/ L 0.01-0.08 L (test code = 417) IMMATURE GRANULOCYTES-RELATIVE 0.80 % 0.00-1.00 PERCENT (BEAKER) (test code = 2801) POCT-GLUCOSE [id number] 09:28:43 Test Item Value Reference Range Interpretation Comments POC-GLUCOSE METER 104 mg/dL 70-110 : TESTED Sienna Connolly [facility] [address] (BEAKER) (test code = [place], 1538) [address]: [employer] Supervisor/Techni miles ID = [id number] for SUZY PATEL POCT-GLUCOSE [id number] 21:57:28 Test Item Value Reference Range Interpretation Comments POC-GLUCOSE METER 106 mg/dL 70-110 : TESTED A T [facility] 67[address] (BEAKER) (test code = [facility], 1538) [address]: [employer] Supervisor/Techni miles ID = [id number] for SA SUZY DOUGLASS POCT-GLUCOSE [id number] 18:31:13 Test Item Value Reference Range Interpretation Comments POC-GLUCOSE METER 110 mg/dL 70-110 : TESTED A T [facility] [address] (BEAKER) (test code = [facility], 1538) [address]: [employer] Supervisor/Techni miles ID = [id number] for SA SUZY DOUGLASS POCT-GLUCOSE [id number] 14:43:58 Test Item Value Reference Range Interpretation Comments POC-GLUCOSE METER 126 mg/dL 70-110 H : TESTED A T [facility] [address] (BEAKER) (test code = [facility], 1538) [address]: [employer] Supervisor/Techni miles ID = [id number] for Co Susu ruiz POCT-GLUCOSE [id number] 12:58:51 Test Item Value Reference Range Interpretation Comments POC-GLUCOSE METER 116 mg/dL 70-110 H : TESTED A T [facility] [address] (BEAKER) (test code = [facility], 1538) [address]: [employer] Supervisor/Techni miles ID = [id number] for SA SUZY DOUGLASS BASIC METABOLIC [id number] 08:41:02 Test Item Value Reference Range Interpretation Comments SODIUM (BEAKER) 140 meq/L 136-145 (test code = 381) POTASSIUM 4.5 meq/L 3.5-5.1 Specimen slight ly (BEAKER) (test hemolyzed code = 379) CHLORIDE (BEAKER) 108 meq/L 98-107 H (test code = 382) CO2 (BEAKER) 24 meq/L 22-29 (test code = 355) BLOOD UREA 13 mg/dL 7-21 NITROGEN (BEAKER) (test code = 354) CREATININE 0.73 mg/dL 0.57-1.25 Specimen slight ly (BEAKER) (test hemolyzed code = 358) GLUCOSE RANDOM 175 mg/dL 70-105 H (BEAKER) (test code = 652) CALCIUM (BEAKER) 8.3 mg/dL 8.4-10.2 L (test code = 697) EGFR (BEAKER) 125 Interpretatio n of eGFR (test code = mL/min/1.73 values Stage De scription 1092) sq m Result G1 Saba l or high >=90 G2 Mildly decreased 60-89 G3a Mildl y to moderately 45-5 9 G3b Moderately to s everely 30-44 G4 Severl y decreased 15-29 G5 Kidne y failure <15Reported eGF R is based on the CKD-EPI 2020 equation that d oes not use a race coefficientEsti mated GFR is not as accur ate as Creatinine Allie brendan in predicting glom erular filtration rate . Estimated GFR is not appl icable for dialysis patien ts CBC (HEMOGRAM ONLY)2022-08-31 06:21:21 Test Item Value Reference Range Interpretation Comments WHITE BLOOD CELL COUNT (BEAKER) 4.6 K/ L 3.5-10.5 (test code = 775) RED BLOOD CELL COUNT (BEAKER) 4.18 M/ L 4.63-6.08 L (test code = 761) HEMOGLOBIN (BEAKER) (test code = 11.2 GM/DL 13.7-17.5 L 410) HEMATOCRIT (BEAKER) (test code = 34.1 % 40.1-51.0 L 411) MEAN CORPUSCULAR VOLUME (BEAKER) 82 fL 79-92 (test code = 753) MEAN CORPUSCULAR HEMOGLOBIN 26.8 pg 25.7-32.2 (BEAKER) (test code = 751) MEAN CORPUSCULAR HEMOGLOBIN CONC 32.8 GM/DL 32.3-36.5 (BEAKER) (test code = 752) RED CELL DISTRIBUTION WIDTH 15.3 % 11.6-14.4 H (BEAKER) (test code = 412) PLATELET COUNT (BEAKER) (test code 84 K/CU MM 150-450 L = 756) MEAN PLATELET VOLUME (BEAKER) 13.0 fL 9.4-12.4 H (test code = 754) NUCLEATED RED BLOOD CELLS (BEAKER) 0 /100 WBC 0-0 (test code = 413) POCT-GLUCOSE [id number] 22:52:00 Test Item Value Reference Range Interpretation Comments POC-GLUCOSE METER 291 mg/dL 70-110 H : TESTED A T [facility] [address] (BEAKER) (test code = [facility], 1538) [address]: [employer] Supervisor/Techni miles ID = [id number] for Mo ore, Yessica POCT-GLUCOSE [id number] 17:40:02 Test Item Value Reference Range Interpretation Comments POC-GLUCOSE METER 318 mg/dL 70-110 H : TESTED A T [facility] [address] (BEAKER) (test code = [facility], [facility]) [address]: [employer] Supervisor/Techni miles ID = [id number] for Pa til, Tunde POCT-GLUCOSE [id number] 11:20:14 Test Item Value Reference Range Interpretation Comments POC-GLUCOSE METER 212 mg/dL 70-110 H : TESTED A T [facility] 67[address] (BEAKER) (test code = [facility], [facility]) [address]: [employer] Supervisor/Techni miles ID = [id number] for Pa til, [place]de POCT-GLUCOSE [id number] 08:49:50 Test Item Value Reference Range Interpretation Comments POC-GLUCOSE METER 151 mg/dL 70-110 H : TESTED A T [facility] 67[address] (BEAKER) (test code = [facility], [facility]) [address]: [employer] Supervisor/Techni miles ID = [id number] for Pa til, Tunde CBC W/PLT COUNT & AUTO [id number] 06:47:20 Test Item Value Reference Range Interpretation Comments WHITE BLOOD CELL COUNT 5.1 K/ L 3.5-10.5 (BEAKER) (test code = 775) RED BLOOD CELL COUNT 3.88 M/ L 4.63-6.08 L (BEAKER) (test code = 761) HEMOGLOBIN (BEAKER) 10.5 GM/DL 13.7-17.5 L (test code = 410) HEMATOCRIT (BEAKER) 32.0 % 40.1-51.0 L (test code = 411) MEAN CORPUSCULAR VOLUME 83 fL 79-92 (BEAKER) (test code = 753) MEAN CORPUSCULAR 27.1 pg 25.7-32.2 HEMOGLOBIN (BEAKER) (test code = 751) MEAN CORPUSCULAR 32.8 GM/DL 32.3-36.5 HEMOGLOBIN CONC (BEAKER) (test code = 752) RED CELL DISTRIBUTION 15.8 % 11.6-14.4 H WIDTH (BEAKER) (test code = 412) PLATELET COUNT (BEAKER) 69 K/CU MM 150-450 L (test code = 756) MEAN PLATELET VOLUME Unable to report due (BEAKER) (test code = to abn ormal Platelet 754) population distribution. NUCLEATED RED BLOOD 0 /100 WBC 0-0 CELLS (BEAKER) (test code = 413) NEUTROPHILS RELATIVE 78 % PERCENT (BEAKER) (test code = 429) LYMPHOCYTES RELATIVE 16 % PERCENT (BEAKER) (test code = 430) MONOCYTES RELATIVE 5 % PERCENT (BEAKER) (test code = 431) EOSINOPHILS RELATIVE 0 % PERCENT (BEAKER) (test code = 432) BASOPHILS RELATIVE 0 % PERCENT (BEAKER) (test code = 437) NEUTROPHILS ABSOLUTE 4.01 K/ L 1.78-5.38 COUNT (BEAKER) (test code = 670) LYMPHOCYTES ABSOLUTE 0.79 K/ L 1.32-3.57 L COUNT (BEAKER) (test code = 414) MONOCYTES ABSOLUTE 0.24 K/ L 0.30-0.82 L COUNT (BEAKER) (test code = 415) EOSINOPHILS ABSOLUTE 0.00 K/ L 0.04-0.54 L COUNT (BEAKER) (test code = 416) BASOPHILS ABSOLUTE 0.00 K/ L 0.01-0.08 L COUNT (BEAKER) (test code = 417) IMMATURE 1.40 % 0.00-1.00 H GRANULOCYTES-RELATIVE PERCENT (BEAKER) (test code = 2801) COMPREHENSIVE METABOLIC [id number] 05:50:04 Test Item Value Reference Range Interpretation Comments TOTAL PROTEIN 6.6 gm/dL 6.0-8.3 (BEAKER) (test code = 770) ALBUMIN (BEAKER) 3.4 g/dL 3.5-5.0 L (test code = 1145) ALKALINE 211 U/L 40-150 H PHOSPHATASE (BEAKER) (test code = 346) BILIRUBIN TOTAL 1.0 mg/dL 0.2-1.2 (BEAKER) (test code = 377) SODIUM (BEAKER) 138 meq/L 136-145 (test code = 381) POTASSIUM (BEAKER) 4.2 meq/L 3.5-5.1 (test code = 379) CHLORIDE (BEAKER) 110 meq/L 98-107 H (test code = 382) CO2 (BEAKER) (test 23 meq/L 22-29 code = 355) BLOOD UREA 16 mg/dL 7-21 NITROGEN (BEAKER) (test code = 354) CREATININE 0.76 mg/dL 0.57-1.25 (BEAKER) (test code = 358) GLUCOSE RANDOM 170 mg/dL 70-105 H (BEAKER) (test code = 652) CALCIUM (BEAKER) 8.4 mg/dL 8.4-10.2 (test code = 697) AST (SGOT) 33 U/L 5-34 (BEAKER) (test code = 353) ALT (SGPT) 33 U/L 6-55 (BEAKER) (test code = 347) EGFR (BEAKER) 123 Interpretatio n of eGFR (test code = 1092) mL/min/1.[address] age Description sq m Result G1 Saba l or high >=90 G2 Mildly decreased 60-89 G3a Mildl y to moderately 45-5 9 G3b Moderately to s everely 30-44 G4 Severl y decreased 15-29 G5 Kidney failure <15Reported eGF R is based on the CKD-EPI 2020 equation that d oes not use a race coefficientEsti mated GFR is not as accur ate as Creatinine Allie brendan in predicting glom erular filtration rate . Estimated GFR is not appl icable for dialysis patien ts [employer] Supervisor ID - [id number] 05:40:48 Test Item Value Reference Range Interpretation Comments PARTIAL THROMBOPLASTIN TIME 74.1 seconds 22.5-36.0 H (BEAKER) (test code = 760) PROTHROMBIN [id number] 05:39:03 Test Item Value Reference Range Interpretation Comments PROTIME (BEAKER) (test code = 16.6 seconds 11.9-14.2 H 759) INR (BEAKER) (test code = 370) 1.43 <=5.90 RECOMMENDED COUMADIN/WARFARIN INR THERAPY RANGESSTANDARD DOSE: 2.0 - 3.0 Includes: PROPHYLAXIS for venous thrombosis, systemic embolization; TREATMENT for venous thrombosis and/or pulmonary embolus.HIGH RISK: Target INR is 2.5-3.5 for patients with mechanical heart valves.POCT-GLUCOSE [id number] 23:00:43 Test Item Value Reference Range Interpretation Comments POC-GLUCOSE METER 274 mg/dL 70-110 H : TESTED A T [facility] 6720 (BEAKER) (test code [facility], = 1538) 70765: [employer] Supervisor/Techni miles ID = [id number] for Winsome Avalos POCT-GLUCOSE [id number] 17:38:44 Test Item Value Reference Range Interpretation Comments POC-GLUCOSE METER 218 mg/dL 70-110 H : TESTED A T [facility] 6720 (BEAKER) (test code = [facility], 1538) 14809: [employer] Supervisor/Techni miles ID = [id number] for Pa til, [place] POCT-GLUCOSE [id number] 11:17:39 Test Item Value Reference Range Interpretation Comments POC-GLUCOSE METER 231 mg/dL 70-110 H : TESTED A T [facility] 6720 (BEAKER) (test code = [facility], 1538) 11154: [employer] Supervisor/Techni miles ID = [id number] for Pa til, [place] POCT-GLUCOSE [id number] 07:41:52 Test Item Value Reference Range Interpretation Comments POC-GLUCOSE METER 204 mg/dL 70-110 H : TESTED A T [facility] 6720 (BEAKER) (test code = [facility], 1538) 14772: [employer] Supervisor/Techni miles ID = [id number] for Pa til, [place] COMPREHENSIVE METABOLIC [id number] 05:45:04 Test Item Value Reference Range Interpretation Comments TOTAL PROTEIN 6.9 gm/dL 6.0-8.3 (BEAKER) (test code = 770) ALBUMIN (BEAKER) 3.5 g/dL 3.5-5.0 (test code = 1145) ALKALINE 235 U/L 40-150 H PHOSPHATASE (BEAKER) (test code = 346) BILIRUBIN TOTAL 1.2 mg/dL 0.2-1.2 (BEAKER) (test code = 377) SODIUM (BEAKER) 137 meq/L 136-145 (test code = 381) POTASSIUM (BEAKER) 4.1 meq/L 3.5-5.1 (test code = 379) CHLORIDE (BEAKER) 109 meq/L 98-107 H (test code = 382) CO2 (BEAKER) (test 21 meq/L 22-29 L code = 355) BLOOD UREA 15 mg/dL 7-21 NITROGEN (BEAKER) (test code = 354) CREATININE 0.78 mg/dL 0.57-1.25 (BEAKER) (test code = 358) GLUCOSE RANDOM 150 mg/dL 70-105 H (BEAKER) (test code = 652) CALCIUM (BEAKER) 8.5 mg/dL 8.4-10.2 (test code = 697) AST (SGOT) 43 U/L 5-34 H (BEAKER) (test code = 353) ALT (SGPT) 31 U/L 6-55 (BEAKER) (test code = 347) EGFR (BEAKER) 123 Interpretatio n of eGFR (test code = 1092) mL/min/1.[address] age Description sq m Result G1 Saba l or high >=90 G2 Mildly decreased 60-89 G3a Mildl y to moderately 45-5 9 G3b Moderately to s everely 30-44 G4 Severl y decreased 15-29 G5 Kidney failure <15Reported eGF R is based on the CKD-EPI 2020 equation that d oes not use a race coefficientEsti mated GFR is not as accur ate as Creatinine Allie brendan in predicting glom erular filtration rate . Estimated GFR is not appl icable for dialysis patien ts [employer] Supervisor ID - [id number] 05:20:40 Test Item Value Reference Range Interpretation Comments HAPTOGLOBIN (BEAKER) (test code = 59 mg/dL 14-258 366) [employer] Supervisor ID - [id number] 05:15:08 Test Item Value Reference Range Interpretation Comments PARTIAL THROMBOPLASTIN TIME 81.5 seconds 22.5-36.0 H (BEAKER) (test code = 760) PROTHROMBIN [id number] 05:13:31 Test Item Value Reference Range Interpretation Comments PROTIME (BEAKER) (test code = 16.6 seconds 11.9-14.2 H 759) INR (BEAKER) (test code = 370) 1.43 <=5.90 RECOMMENDED COUMADIN/WARFARIN INR THERAPY RANGESSTANDARD DOSE: 2.0 - 3.0 Includes: PROPHYLAXIS for venous thrombosis, systemic embolization; TREATMENT for venous thrombosis and/or pulmonary embolus.HIGH RISK: Target INR is 2.5-3.5 for patients with mechanical heart valves.CBC W/PLT COUNT & AUTO [id number] 05:08:48 Test Item Value Reference Range Interpretation Comments WHITE BLOOD CELL COUNT 6.2 K/ L 3.5-10.5 (BEAKER) (test code = 775) RED BLOOD CELL COUNT 3.89 M/ L 4.63-6.08 L (BEAKER) (test code = 761) HEMOGLOBIN (BEAKER) 10.4 GM/DL 13.7-17.5 L (test code = 410) HEMATOCRIT (BEAKER) 32.0 % 40.1-51.0 L (test code = 411) MEAN CORPUSCULAR 82 fL 79-92 VOLUME (BEAKER) (test code = 753) MEAN CORPUSCULAR 26.7 pg 25.7-32.2 HEMOGLOBIN (BEAKER) (test code = 751) MEAN CORPUSCULAR 32.5 GM/DL 32.3-36.5 HEMOGLOBIN CONC (BEAKER) (test code = 752) RED CELL DISTRIBUTION 15.9 % 11.6-14.4 H WIDTH (BEAKER) (test code = 412) PLATELET COUNT 43 K/CU MM 150-450 L Discordant re sults (BEAKER) (test code = compar ed to previous 756) results; clinic al correlation req uired MEAN PLATELET VOLUME Unable to report due (BEAKER) (test code = to abn ormal Platelet 754) population distribution. NUCLEATED RED BLOOD 0 /100 WBC 0-0 CELLS (BEAKER) (test code = 413) NEUTROPHILS RELATIVE 81 % PERCENT (BEAKER) (test code = 429) LYMPHOCYTES RELATIVE 12 % PERCENT (BEAKER) (test code = 430) MONOCYTES RELATIVE 6 % PERCENT (BEAKER) (test code = 431) EOSINOPHILS RELATIVE 0 % PERCENT (BEAKER) (test code = 432) BASOPHILS RELATIVE 0 % PERCENT (BEAKER) (test code = 437) NEUTROPHILS ABSOLUTE 5.06 K/ L 1.78-5.38 COUNT (BEAKER) (test code = 670) LYMPHOCYTES ABSOLUTE 0.75 K/ L 1.32-3.57 L COUNT (BEAKER) (test code = 414) MONOCYTES ABSOLUTE 0.34 K/ L 0.30-0.82 COUNT (BEAKER) (test code = 415) EOSINOPHILS ABSOLUTE 0.01 K/ L 0.04-0.54 L COUNT (BEAKER) (test code = 416) BASOPHILS ABSOLUTE 0.00 K/ L 0.01-0.08 L COUNT (JATINDER) (test code = 417) IMMATURE 1.10 % 0.00-1.00 H GRANULOCYTES-RELATIVE PERCENT (TWAN) (test code = 2801) POCT-GLUCOSE [id number] 21:47:57 Test Item Value Reference Range Interpretation Comments POC-GLUCOSE METER 181 mg/dL 70-110 H : TESTED A T [facility] 6720 ([facility]) (test code = [facility], 1538) 32568: [employer] Supervisor/Techni miles ID = [id number] for SA SALAS, ESA POCT-GLUCOSE [id number] 18:01:02 Test Item Value Reference Range Interpretation Comments POC-GLUCOSE METER 170 mg/dL 70-110 H : TESTED A T [facility] 6720 ([facility]) (test code = [facility], 1538) 41461: [employer] Supervisor/Techni miles ID = [id number] for Pa til, [place] PERIPHERAL BLOOD SMEAR - PATHOLOGIST [id number] 15:27:11 Test Item Value Reference Range Interpretation Comments PERIPHERAL SMR REVIEW WBCs include (TWAN) (test code = predominantly mature 2640) granulocytes. Rare lymphoid cells with reactive features. Normocytic normochromic anemia. Schistocytes are not increased. Decreased platelets, no significant clumping/satellitism seen. [id number] Tram Jaeger ([facility]) (test code = Yamini Godinez 1369) [id number] 13:31:39 Test Item Value Reference Range Interpretation Comments RPR SCREEN ([facility]) (test code = Nonreactive Nonreactive 420) HEMOGLOBIN [id number] 12:15:08 Test Item Value Reference Range Interpretation Comments HEMOGLOBIN A1C 4.7 % See_Comment [Automated m essage] ELECTROPHORESIS ([facility]) The system which (test code = 3811) generated this result transmitted ref erence range: <=5.6%. The reference range was not used to int erpret this result as normal/abnormal . "The A1c is measured using a NGSP-certified method. HbA1c value equal to or greater than 6.5% as thediagnosis cutoff for diabetes. An HbA1c value of 5.7- 6.4% indicates increased risk for diabetes (prediabetes)."[employer] Supervisor ID - ADMPOCT- GLUCOSE [id number] 11:36:38 Test Item Value Reference Range Interpretation Comments POC-GLUCOSE METER 247 mg/dL 70-110 H : TESTED A T [facility] 6720 (BEAKER) (test code = [facility], 1538) 35987: [employer] Supervisor/Techni miles ID = [id number] for Pa til, [place] VITAMIN [id number] 11:34:44 Test Item Value Reference Range Interpretation Comments VITAMIN B12 (BEAKER) (test code = 719 pg/mL 213-816 774) [employer] Supervisor ID - MMPOCT-GLUCOSE [id number] 07:40:59 Test Item Value Reference Range Interpretation Comments POC-GLUCOSE METER 142 mg/dL 70-110 H : TESTED A T [facility] 6720 (BEAKER) (test code = [facility], 1538) 70049: [employer] Supervisor/Techni miles ID = [id number] for Pa til, [place] LACTATE DEHYDROGENASE (LDH)2022-08-28 06:04:33 Test Item Value Reference Range Interpretation Comments LACTATE DEHYDROGENASE (BEAKER) (test 231 U/L 125-220 H code = 635) [employer] Supervisor ID - MMCOMPREHENSIVE METABOLIC [id number] 06:04:28 Test Item Value Reference Range Interpretation Comments TOTAL PROTEIN 6.6 gm/dL 6.0-8.3 (BEAKER) (test code = 770) ALBUMIN (BEAKER) 3.4 g/dL 3.5-5.0 L (test code = 1145) ALKALINE 246 U/L 40-150 H PHOSPHATASE (BEAKER) (test code = 346) BILIRUBIN TOTAL 1.5 mg/dL 0.2-1.2 H (BEAKER) (test code = 377) SODIUM (BEAKER) 137 meq/L 136-145 (test code = 381) POTASSIUM (BEAKER) 4.2 meq/L 3.5-5.1 (test code = 379) CHLORIDE (BEAKER) 109 meq/L 98-107 H (test code = 382) CO2 (BEAKER) (test 19 meq/L 22-29 L code = 355) BLOOD UREA 18 mg/dL 7-21 NITROGEN (BEAKER) (test code = 354) CREATININE 0.85 mg/dL 0.57-1.25 (BEAKER) (test code = 358) GLUCOSE RANDOM 192 mg/dL 70-105 H (BEAKER) (test code = 652) CALCIUM (BEAKER) 8.5 mg/dL 8.4-10.2 (test code = 697) AST (SGOT) 40 U/L 5-34 H (BEAKER) (test code = 353) ALT (SGPT) 23 U/L 6-55 (BEAKER) (test code = 347) EGFR (BEAKER) 120 Interpretatio n of eGFR (test code = 1092) mL/min/1.[address] age Description sq m Result G1 Saba l or high >=90 G2 Mildly decreased 60-89 G3a Mildl y to moderately 45-5 9 G3b Moderately to s everely 30-44 G4 Severl y decreased 15-29 G5 Kidney failure <15Reported eGF R is based on the CKD-EPI 2020 equation that d oes not use a race coefficientEsti mated GFR is not as accur ate as Creatinine Allie brendan in predicting glom erular filtration rate . Estimated GFR is not appl icable for dialysis patien ts [employer] Supervisor ID - [id number] 05:58:17 Test Item Value Reference Range Interpretation Comments HAPTOGLOBIN (TWAN) (test code = 47 mg/dL 14-258 366) [employer] Supervisor ID - [id number] 05:42:00 Test Item Value Reference Range Interpretation Comments D-DIMER QUANTITATIVE (TRADE TO REBATEAKER) 0.38 MG/L FEU <0.50 (test code = 671) Intended Use: The D-Dimer Assay can be used to aid in the diagnosis of Deep Vein Thrombosis (DVT) and Pulmonary Embolism Disease (PED).In patients with low pre- test probability, various studies concerning STA Liatest D-dimer test have reported that with a cutoff value of 0.50 MG/L FEU, the Negative Predictive Value (NPV) regarding the exclusion of thrombosis is within 95-100% range.APTT 2022-08-28 05:41:01 Test Item Value Reference Range Interpretation Comments PARTIAL THROMBOPLASTIN TIME 90.5 seconds 22.5-36.0 H (BEAKER) (test code = 760) CBC W/PLT COUNT & AUTO [id number] 05:40:17 Test Item Value Reference Range Interpretation Comments WHITE BLOOD CELL COUNT 2.6 K/ L 3.5-10.5 L (BEAKER) (test code = 775) RED BLOOD CELL COUNT 3.80 M/ L 4.63-6.08 L (BEAKER) (test code = 761) HEMOGLOBIN (BEAKER) 10.2 GM/DL 13.7-17.5 L (test code = 410) HEMATOCRIT (BEAKER) 31.1 % 40.1-51.0 L (test code = 411) MEAN CORPUSCULAR 82 fL 79-92 VOLUME (BEAKER) (test code = 753) MEAN CORPUSCULAR 26.8 pg 25.7-32.2 HEMOGLOBIN (BEAKER) (test code = 751) MEAN CORPUSCULAR 32.8 GM/DL 32.3-36.5 HEMOGLOBIN CONC (BEAKER) (test code = 752) RED CELL DISTRIBUTION 15.5 % 11.6-14.4 H WIDTH (BEAKER) (test code = 412) PLATELET COUNT 15 K/CU MM 150-[address] T (BEAKER) (test code = result s compared to 756) previous result s; clinical correl ation required. MEAN PLATELET VOLUME Unable to report due (BEAKER) (test code = to abn ormal Platelet 754) population distribution. NUCLEATED RED BLOOD 0 /100 WBC 0-0 CELLS (BEAKER) (test code = 413) NEUTROPHILS RELATIVE 78 % PERCENT (BEAKER) (test code = 429) LYMPHOCYTES RELATIVE 18 % PERCENT (BEAKER) (test code = 430) MONOCYTES RELATIVE 2 % PERCENT (BEAKER) (test code = 431) EOSINOPHILS RELATIVE 0 % PERCENT (BEAKER) (test code = 432) BASOPHILS RELATIVE 0 % PERCENT (BEAKER) (test code = 437) NEUTROPHILS ABSOLUTE 2.05 K/ L 1.78-5.38 COUNT (BEAKER) (test code = 670) LYMPHOCYTES ABSOLUTE 0.48 K/ L 1.32-3.57 L COUNT (BEAKER) (test code = 414) MONOCYTES ABSOLUTE 0.06 K/ L 0.30-0.82 L COUNT (BEAKER) (test code = 415) EOSINOPHILS ABSOLUTE 0.01 K/ L 0.04-0.54 L COUNT (BEAKER) (test code = 416) BASOPHILS ABSOLUTE 0.01 K/ L 0.01-0.08 COUNT (BEAKER) (test code = 417) IMMATURE 0.40 % 0.00-1.00 GRANULOCYTES-RELATIVE PERCENT (TWAN) (test code = 2801) PROTHROMBIN [id number] 05:39:13 Test Item Value Reference Range Interpretation Comments PROTIME (TWAN) (test code = 15.9 seconds 11.9-14.2 H 759) INR (TWAN) (test code = 370) 1.35 <=5.90 RECOMMENDED COUMADIN/WARFARIN INR THERAPY RANGESSTANDARD DOSE: 2.0 - 3.0 Includes: PROPHYLAXIS for venous thrombosis, systemic embolization; TREATMENT for venous thrombosis and/or pulmonary embolus.HIGH RISK: Target INR is 2.5-3.5 for patients with mechanical heart valves.CT ABDOMEN/PELVIS WITH IV CONTRAST 2022-08-28 04:12[facility]02 [facility] 1990 Sex: MEXAM/TECHNIQUE: CT of the abdomen and pelvis with IV contrast. 3Drendering was not performed. Dose modulation, iterative reconstruction,and/or weight based adjustment of the mA/kV was utilized to reduce theradiation dose to as low as reasonably achievable.INDICATION: Hx APLS, ITP, PE/ DVT and now with chest pain and azygousvein dilation, c/f IVC thrombusCOMPARISON: None.FINDINGS:Lower thorax: No focal consolidation or suspicious pulmonary nodule. Thevisualized heart is unremarkable.Liver: The main portal vein is patent. No focal mass.Biliary: The gallbladder and intrahepatic and extrahepatic biliarysystems are unremarkable.Spleen: Splenomegaly measuring 20 cm increased color dimension.Pancreas: Unremarkable.Adrenals: Unremarkable.Kidneys: Symmetric bilateral nephrograms. No hydronephrosis.Nonobstructing right renal calculi measuring up to 2 mm.Bowel: Normal appearance of the colon. The appendix is salas rgicallyabsent. The small bowel and stomach are normal in appearance withoutfindings of obstruction.Lymph nodes: No lymphadenopathy by size criteria. Mesentery: No ascites. No pneumoperitoneum.Pelvis: Unremarkable appearance of the pelvic organs. The bladder isunremarkable in appearance.Vessels: Prominent subcutaneous vessels are present along with numerousportosystemic collaterals including paraesophageal varices. Varices ofthe esophagus and hemiazygous veins. The IVC hepatic portion isdiminutive.Osseous: No acute osseous process. No suspicious osseous lesions.IMPRESSION:Impression:1. 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 Splenomegaly, likely related to portal venous hypertension, likelyrelated to shunting from the systemic system.Electronically Signed By: Edwin Mcmahon08/28/2022 04:15 CDTWorkstation Name: [id number] SENSITIVITY TROPONIN [id number] 21:14:25 Test Item Value Reference Range Interpretation Comments HIGH SENSITIVITY TROPONIN I (test < pg/ml <=35 code = 8600642) [employer] Supervisor ID - BSThe STRIPE MATCHER STAT High Sensitivity Troponin-I results should be used in conjunctionwith other diagnostic information such as ECG, clinical observations and information, and patient symptoms to aid in the diagnosis of [place].(MANUAL DIFFERENTIAL)2022-08-27 21:13:21 Test Item Value Reference Range Interpretation Comments NEUTROPHILS - REL (DIFF) (BEAKER) 80 % (test code = 1359) LYMPHOCYTES - REL (DIFF) (BEAKER) 15 % (test code = 1360) MONOCYTES - REL (DIFF) (BEAKER) 2 % (test code = 1361) EOSINOPHILS - REL (DIFF) (BEAKER) 1 % (test code = 1362) BANDS - REL (DIFF) (BEAKER) (test 2 % 0-10 code = 1348) NEUTROPHILS - ABS (DIFF) (BEAKER) 2.88 K/ L 1.80-8.00 (test code = 1365) LYMPHOCYTES - ABS (DIFF) (BEAKER) 0.54 K/ L 1.48-4.50 L (test code = 1366) MONOCYTES - ABS (DIFF) (BEAKER) 0.07 K/ L 0.00-1.30 (test code = 1367) EOSINOPHILS - ABS (DIFF) (BEAKER) 0.04 K/ L 0.00-0.50 (test code = 1368) BANDS-ABS (DIFF) (BEAKER) (test 0.1 K/ L 0.0-0.8 code = 1349) TOTAL COUNTED (BEAKER) (test code = 100 1351) BANDS + SEGMENTED NEUTROPHILS 2.95 (BEAKER) (test code = 1352) WBC MORPHOLOGY (BEAKER) (test code Normal = 487) PLT MORPHOLOGY (BEAKER) (test code Normal = 486) ANISOCYTOSIS (BEAKER) (test code = 1+ few 961) MICROCYTES (BEAKER) (test code = 1+ few 965) POLYCHROMATOPHILLIC RBCS(BEAKER) 1+ few (test code = 478) HEPATITIS PANEL, [id number] 15:45:44 Test Item Value Reference Range Interpretation Comments HEPATITIS A IGM ANTIBODY (BEAKER) Nonreactive Nonreactive (test code = 498) HEPATITIS B CORE IGM ANTIBODY Nonreactive Nonreactive (BEAKER) (test code = 645) HEPATITIS C ANTIBODY (BEAKER) Nonreactive Nonreactive (test code = 367) HEPATITIS B SURFACE ANTIGEN (2) Nonreactive Nonreactive (BEAKER) (test code = 2585) [employer] Supervisor ID - BVHIV-1 ANTIGEN WITH HIV-1/2 [id number] 15:45:44 Test Item Value Reference Range Interpretation Comments HIV-1 ANTIGEN WITH HIV 1\\T\\2 Nonreactive Nonreactive ANTIBODY (2) (BEAKER) (test code = 2586) [employer] Supervisor ID - BVHIGH SENSITIVITY TROPONIN [id number] 15:27:47 Test Item Value Reference Range Interpretation Comments HIGH SENSITIVITY TROPONIN I (test < pg/ml <=35 code = 8543116) [employer] Supervisor ID - BVThe STRIPE MATCHER STAT High Sensitivity Troponin-I results should be used in conjunctionwith other diagnostic information such as ECG, clinical observations and information, and patient symptoms to aid in the diagnosis of [place].[id number] 15:22:23 Test Item Value Reference Range Interpretation Comments HAPTOGLOBIN (BEAKER) (test code = 41 mg/dL 14-258 366) [employer] Supervisor ID - BVLACTATE DEHYDROGENASE (LDH)2022-08-27 15:21:43 Test Item Value Reference Range Interpretation Comments LACTATE DEHYDROGENASE (BEAKER) (test 219 U/L 125-220 code = 635) [employer] Supervisor ID - [id number] 15:16:37 Test Item Value Reference Range Interpretation Comments PARTIAL THROMBOPLASTIN TIME 102.0 seconds 22.5-36.0 H (BEAKER) (test code = 760) [id number] 15:10:47 Test Item Value Reference Range Interpretation Comments FIBRINOGEN LEVEL (BEAKER) (test 350 mg/dl 225-434 code = 658) PROTHROMBIN TIME/[id number] 15:10:31 Test Item Value Reference Range Interpretation Comments PROTIME (BEAKER) (test code = 16.3 seconds 11.9-14.2 H 759) INR (BEAKER) (test code = 370) 1.39 <=5.90 RECOMMENDED COUMADIN/WARFARIN INR THERAPY RANGESSTANDARD DOSE: 2.0 - 3.0 Includes: PROPHYLAXIS for venous thrombosis, systemic embolization; TREATMENT for venous thrombosis and/or pulmonary embolus.HIGH RISK: Target INR is 2.5-3.5 for patients with mechanical heart valves.CTA CHEST FOR PULMONARY EMBOLUS 2022-08-27 13:06:11 [facility] : 1990 Sex: MCT Chest PE Protocol dated 08/27/2022 Clinical information: PE suspected, intermediate prob, positive D-dimerright sided chest pain Technique: CT scan of the chest with intravenous contrast. Dosemodulation,interactive reconstruction, and/or weight based adjustmentof the mA/kV was utilized to reduce the radiation dose to as low asreasonably achievable. Precontrast axial images were obtained at pulmonary tr unk level for thepurpose of monitoring subsequent IV contrast. Postcontrast axial images of the chest were obtained from above the archlevel to the lower chest at maximum enhancement of pulmonary artery.Delayed axial images of the entire chest were obtained subsequently. Coronal and sagittal reconstruction were provided. MIP images wereprovided to better assess the vasculature.Comment: Both thyroid lobes are normal in appearance. Soft tissuefullness is seen in the prevascular mediastinum that represent tothymus. Tubular structures are seen in the anterior mediastinum andalong the left heart border thought to represent collateral vessels. Theazygous vein is enlarged. Prominent tubular structure is also seen inthe posterior left hemithorax.Heart is normal in size. Greater vessels are unremarkable. No fillingdetect is noted in the pulmonary trunk or pulmonary arteries. No adenopathy is noted in themediastinum or perihilar region. Tracheaand mainstem bronchi are patent. Subsegmental atelectasis isseen in the right lower lobe. The rest ofthe lungs are clear. No nodular, mass lesion or airspace ispresent.No pleural effusion or pleural base mass is seen. IMPRESSION:Impression:1. No pulmonary thromboembolism.2. Enlarged tubular structure in the mediastinum and along the leftheart border as well as enlarged azygous vein. Recommend furtherevaluation with CT of the abdomen to exclude IVC obstruction. Electronically Signed By: Lexa Kelley08/27/2022 13:13 CDTWorkstation Name: [id number] NATRIURETIC FACTOR (BNP)2022-08-27 09:20:41 Test Item Value Reference Range Interpretation Comments B-TYPE NATRIURETIC PEPTIDE (BEAKER) 51 pg/mL 0-100 (test code = 700) [employer] Supervisor ID - MMHIGH SENSITIVITY TROPONIN [id number] 09:20:18 Test Item Value Reference Range Interpretation Comments HIGH SENSITIVITY TROPONIN I (test < pg/ml <=35 code = 9286838) [employer] Supervisor ID - MMThe STRIPE MATCHER STAT High Sensitivity Troponin-I results should be used in conjunctionwith other diagnostic information such as ECG, clinical observations and information, and patient symptoms to aid in the diagnosis of [place].BASIC METABOLIC [id number] 09:12:54 Test Item Value Reference Range Interpretation Comments SODIUM (BEAKER) 138 meq/L 136-145 (test code = 381) POTASSIUM 4.5 meq/L 3.5-5.1 (BEAKER) (test code = 379) CHLORIDE (BEAKER) 108 meq/L 98-107 H (test code = 382) CO2 (BEAKER) 21 meq/L 22-29 L (test code = 355) BLOOD UREA 14 mg/dL 7-21 NITROGEN (BEAKER) (test code = 354) CREATININE 0.80 mg/dL 0.57-1.25 (BEAKER) (test code = 358) GLUCOSE RANDOM 101 mg/dL 70-105 (BEAKER) (test code = 652) CALCIUM (BEAKER) 8.8 mg/dL 8.4-10.2 (test code = 697) EGFR (BEAKER) 122 Interpretatio n of eGFR (test code = mL/min/1.73 values Stage De scription 1092) sq m Result G1 Saba l or high >=90 G2 Mildly decreased 60-89 G3a Mildl y to moderately 45-5 9 G3b Moderately to s everely 30-44 G4 Severl y decreased 15-29 G5 Kidney failure <15Reported eGF R is based on the CKD-EPI 2020 equation that d oes not use a race coefficientEsti mated GFR is not as accur ate as Creatinine Allie brendan in predicting glom erular filtration rate . Estimated GFR is not appl icable for dialysis patien ts [employer] Supervisor ID - MMSpecimen slightly ictericCBC W/PLT COUNT & AUTO DIFFERENTIAL 2022-08-27 09:06:54 Test Item Value Reference Range Interpretation Comments WHITE BLOOD CELL COUNT 3.6 K/ L 3.5-10.5 (BEAKER) (test code = 775) RED BLOOD CELL COUNT 4.10 M/ L 4.63-6.08 L (BEAKER) (test code = 761) HEMOGLOBIN (BEAKER) 11.2 GM/DL 13.7-17.5 L (test code = 410) HEMATOCRIT (BEAKER) 33.1 % 40.1-51.0 L (test code = 411) MEAN CORPUSCULAR VOLUME 81 fL 79-92 (BEAKER) (test code = 753) MEAN CORPUSCULAR 27.3 pg 25.7-32.2 HEMOGLOBIN (BEAKER) (test code = 751) MEAN CORPUSCULAR 33.8 GM/DL 32.3-36.5 HEMOGLOBIN CONC (BEAKER) (test code = 752) RED CELL DISTRIBUTION 15.7 % 11.6-14.4 H WIDTH (BEAKER) (test code = 412) PLATELET COUNT (BEAKER) 8 K/CU MM 150-450 LL (test code = 756) MEAN PLATELET VOLUME Unable to report due (BEAKER) (test code = to abn ormal Platelet 754) population distribution. NUCLEATED RED BLOOD 0 /100 WBC 0-0 CELLS (BEAKER) (test code = 413) NEUTROPHILS RELATIVE 67 % PERCENT (BEAKER) (test code = 429) LYMPHOCYTES RELATIVE 22 % PERCENT (BEAKER) (test code = 430) MONOCYTES RELATIVE 3 % PERCENT (BEAKER) (test code = 431) EOSINOPHILS RELATIVE 7 % PERCENT (BEAKER) (test code = 432) BASOPHILS RELATIVE 1 % PERCENT (BEAKER) (test code = 437) NEUTROPHILS ABSOLUTE 2.38 K/ L 1.78-5.38 COUNT (BEAKER) (test code = 670) LYMPHOCYTES ABSOLUTE 0.79 K/ L 1.32-3.57 L COUNT (BEAKER) (test code = 414) MONOCYTES ABSOLUTE 0.11 K/ L 0.30-0.82 L COUNT (BEAKER) (test code = 415) EOSINOPHILS ABSOLUTE 0.23 K/ L 0.04-0.54 COUNT (BEAKER) (test code = 416) BASOPHILS ABSOLUTE 0.04 K/ L 0.01-0.08 COUNT (BEAKER) (test code = 417) IMMATURE 0.30 % 0.00-1.00 GRANULOCYTES-RELATIVE PERCENT (BEAKER) (test code = 2801) [id number] 09:05:03 Test Item Value Reference Range Interpretation Comments D-DIMER QUANTITATIVE (BEAKER) 0.61 MG/L FEU <0.50 H (test code = 671) Intended Use: The D-Dimer Assay can be used to aid in the diagnosis of Deep Vein Thrombosis (DVT) and Pulmonary Embolism Disease (PED).In patients with low pre- test probability, various studies concerning STA Liatest D-dimer test have reported that with a cutoff value of 0.50 MG/L FEU, the Negative Predictive Value (NPV) regarding the exclusion of thrombosis is within 95-100% range.
[2022-09-07] MEDS ORDERED: ACETAMINOPHEN 500 MG TAB ONE (21:20)
[2022-09-07] MEDS ORDERED: NA CHLORIDE 0.9% 3,000 ML ONE (21:20)
--- NOTE | 2022-09-07 21:41 | RAD REPORT ---
EXAM DESCRIPTION: RAD - Chest Single View - 09/07/2022 9:33 pm CLINICAL HISTORY: COUGH Chest pain. COMPARISON: <Comparisons> FINDINGS: Portable technique limits examination quality. The lungs are grossly clear. The heart is normal in size. A right aortic arch is possible, variant an atomy. IMPRESSION: No acute intrathoracic process suspected.
[2022-09-07 21:45] LABS: Absolute Lymphocytes (CBC) 1.1 K/uL (0.7-4.9); Hematocrit 32.6 % (39.6-49.0); Lymphocytes % 18.7 % (15.3-44.8); MCV 80.7 fL (80-100); MPV 13.3 fL (7.6-11.3); RBC Red Blood Cell Count 4.04 M/uL (4.33-5.43)
[2022-09-07 21:47] LABS: Protime INR 1.34
[2022-09-07 22:00] LABS: ALT/SGPT 41 U/L (16-61); AST/SGOT 41 U/L (15-37); Albumin 2.9 g/dL (3.4-5.0); Alkaline Phosphatase 242 U/L (45-117); BUN Blood Urea Nitrogen 21 mg/dL (7-18); Bicarbonate 22 mEq/L (21-32); Bilirubin Direct 0.9 mg/dL (0-0.2); Bilirubin Indirect, Calculated 0.9 mg/dL (0.2-0.8); Bilirubin Total 1.8 mg/dL (0.2-1.0); Glomerular Filtration Rate 85 ml/min (=/>90); Glucose Level 93 mg/dL (74-106); Protein, Total 7.1 g/dL (6.4-8.2); Sodium Level 136 mEq/L (136-145)
--- NOTE | 2022-09-07 22:00 | RAD REPORT ---
EXAM DESCRIPTION: CT - Head Brain Wo Cont - 09/07/2022 9:52 pm CLINICAL HISTORY: SEIZURE Headache, drowsiness, seizure COMPARISON: No comparisons TECHNIQUE: All CT scans are performed using dose optimization technique as appropriate and may inclu de automated exposure control or mA/KV adjustment according to patient size. FINDINGS: No intracranial hemorrhage, hydrocephalus or extra-axial fluid collection.No areas of brai n edema or evidence of midline shift. The paranasal sinuses and mastoids are clear. The calvarium is intact. IMPRESSION: No acute intracranial abnormality.
[2022-09-07 22:02] LABS: Troponin High Sensitivity 120.2 pg/mL (<58.9)
[2022-09-07] MEDS ORDERED: ENOXAPARIN 100 MG/ML SYR SQ ONE (23:32)
[2022-09-07] MEDS ORDERED: FAMOTIDINE 20 MG/2 ML VIAL IV ONE (23:32)
--- NOTE | 2022-09-07 23:54 | ER ---
Nurse's Notes [facility] Name: Anthony Castañeda Age: 31 yrs Sex: Male : 1990 Arrival Date: 09/07/2022 Time: 20:46 Bed [id number] Private MD: Diagnosis: Cellulitis and acute lymphangitis of other parts of limb;Venous insufficiency (chronic) (peripheral);Fever, unspecified;Other seizures;Abnormal levels of other serum enzymes-elevated tropinon;Acute embolism and thrombosis of other specified deep vein of left lower extremity;Thrombocytopenia, unspecified-HX ITP Presentation: 09/07 20:55 Chief complaint: EMS states: [place] and had a witness seizure that lasted about 3 minutes and was post ictal for about 5 minutes. on arrival to ER pt is AAOx4. no history of seizures. Coronavirus screen: At this time, the client does not indicate any symptoms associated with coronavirus-19. Ebola Screen: No symptoms or risks identified at this time. Initial Sepsis Screen: Does the patient meet any 2 criteria? Temp <36.0*C (96.8*F)) or > 38.3*C (100.9*F). HR > 90 bpm. Does the patient have a suspected source of infection? No. Patient's initial sepsis screen is negative. Risk Assessment: Do you want to hurt yourself or someone else? Patient reports no desire to harm self or others. Onset of symptoms was September 07, 2022. 20:55 Method Of Arrival: EMS: [facility] as6 20:55 Acuity: YULIET 2 as6 Historical: - Allergies: 20:58 Morphine; as6 - PMHx: 20:58 blood clots; ITP; thrombocytopenia; as6 - PSHx: 20:58 Appendectomy; as6 - Immunization history:: Client reports having NOT received the Covid vaccine. - Social history:: Smoking status: Patient denies any tobacco usage or history of. Screenin:33 [facility] ED Fall Risk Assessment (Adult) Score/Fall Risk Level 0 - 2 = Low Risk. Abuse as6 screen: Denies threats or abuse. Denies injuries from another. Nutritional screening: No deficits noted. Tuberculosis screening: No symptoms or risk factors identified. Assessment: 21:00 General: Appears in no apparent distress. Behavior is calm, cooperative. Pain: as6 Complains of pain in left leg. Neuro: Level of Consciousness is awake, alert, obeys commands, Oriented to person, place, time, situation. Cardiovascular: Capillary refill < 3 seconds Patient's skin is warm and dry. Respiratory: Respiratory effort is even, unlabored. Derm: Skin is discoloration to LLE. 23:43 Reassessment: Pt reports wanting an AMA form. Informed the pt that the provider thinks jb4 its best if he stays and receives medical treatment and that symptoms could worsen up to the point of . Pt verbalized understanding of information. Denies further questions or concerns. Continues to want to leave AMA. Provider notified, form signed. Vital Signs: 20:55 BP 127 / 78; Pulse 122; Resp 16 S; Temp 103.1(O); Pulse Ox 97% on R/A; Weight 99.79 kg as6 (R); Height 5 ft. 5 in. (R); Pain 5/10; 21:31 BP 115 / 45; Pulse 114; Resp 20 S; Pulse Ox 100% on R/A; as6 22:38 BP 134 / 62; Pulse 108; Resp 19; Temp 99.8(O); Pulse Ox 100% on R/A; mc5 23:42 BP 126 / 66; Pulse 106; Resp 21 S; Pulse Ox 97% on R/A; as6 20:55 Body Mass Index 36.61 (99.79 kg, 165.1 cm) as6 20:55 Pain Scale: Adult as6 ED Course: 20:54 Patient arrived in ED. mc5 20:54 Seizure precautions initiated. 5 20:54 EKG done, by ED staff, reviewed by Len Devlin MD. mc5 20:55 Arm band placed on. as6 20:58 Triage completed. as6 21:04 Len Devlin MD is Attending Physician. [facility] 21:09 Ronnie Echavarrai, PARISH is Primary Nurse. as6 21:26 Inserted saline lock: 20 gauge in right antecubital area, using aseptic technique. as6 Blood collected. Maintain EMS IV. Dressing intact. Good blood return noted. Site clean \T\ dry. Gauge \T\ site: 20g L AC. 21:35 Chest Single View XRAY In Process Unspecified. EDMS 21:53 CT Head Brain wo Cont In Process Unspecified. EDMS 22:02 Notified ED physician of a critical lab result(s). troponin 120. kl 23:43 No provider procedures requiring assistance completed. IV discontinued, intact, as6 bleeding controlled, No redness/swelling at site. Pressure dressing applied. Administered Medications: 21:16 Drug: NS 0.9% IV 1000 ml Route: IV; Rate: 1 bolus; Site: left antecubital; mb9 23:44 Follow up: Response: No adverse reaction; IV Status: Completed infusion; IV Intake: as6 1000ml 21:16 Drug: NS 0.9% IV 1000 ml Route: IV; Rate: 1 bolus; Site: left antecubital; mb9 23:44 Follow up: Response: No adverse reaction; IV Status: Completed infusion; IV Intake: as6 1000ml 21:16 Drug: Acetaminophen PO 1000 mg Route: PO; mb9 23:43 Follow up: Response: No adverse reaction; Temperature is decreased as6 21:26 Drug: NS 0.9% IV 1000 ml Route: IV; Rate: 1 bolus; Site: right antecubital; as6 23:44 Follow up: Response: No adverse reaction as6 23:44 Follow up: Response: No adverse reaction; IV Status: Completed infusion; IV Intake: as6 1000ml 23:27 Not Given (Patient Refused): Famotidine IVP 20 mg IVP once; dilute with 10 mL 0.9% as6 NaCl; give over 2 minutes 23:27 Drug: Enoxaparin Sub-Q 100 mg Route: Sub-Q; Site: left lower abdomen; as6 23:43 Follow up: Response: No adverse reaction as6 23:42 Not Given (Patient Refused): vancoMYCIN IVPB 2 grams IVPB at calculated rate once as6 23:42 Not Given (Patient Refused): ceFAZolin IVPB 2 grams IVPB once over 30 mins; (mix in 100 as6 mL NS) Medication: 21:33 VIS not applicable for this client. as6 Intake: 23:44 IV: 1000ml; Total: 1000ml. as6 23:44 IV: 1000ml; Total: 2000ml. as6 23:44 IV: 1000ml; Total: 3000ml. as6 Outcome: 23:43 Condition: stable as6 23:43 AMA AMA form signed jb4 23:53 Discharge ordered by MD. bradshaw 23:56 Instructed on discharge instructions, follow up and referral plans. Demonstrated as6 understanding of instructions, follow-up care. 23:57 Patient left the ED. as6 Signatures: Dispatcher [employer] Chyna Manzanares, RN Len Barton MD MD cha Bryson, James, RN RN jb4 Ronnie Echavarria RN RN as6 Bea Perez RN RN [address] [facility]
--- NOTE | 2022-09-07 23:54 | EDPHYS ---
Physician Documentation [facility] Name: Anthony Castañeda Age: 31 yrs Sex: Male : 1990 Arrival Date: 09/07/2022 Time: 20:46 Bed IW10 Private MD: ED Physician Len Devlin HPI: 09/07 23:18 This 31 yrs old Male presents to ER via EMS with complaints of fever and augustine seizure at the [place]. 23:18 The patient has a laceration related to: beach. The patient presents with decreased augustine range of motion, pain, swelling, tenderness. The complaints affect the lateral aspect of left calf, left lateral ankle, left calf, left Achilles, medial aspect of left calf, left carrillo and anterior aspect of left ankle. Context: The problem was sustained at the [place]. resulted from an unknown cause, the patient can fully bear weight, the patient is able to ambulate, without difficulty. Modifying factors: The symptoms are alleviated by elevating leg, remaining still, the symptoms are aggravated by nothing. Associated signs and symptoms: Pertinent positives: swelling, warmth, of the left leg. Onset: The symptoms/episode began/occurred just prior to arrival. The patient reports fever, that was measured at 103 degrees Fahrenheit. Modifying factors: there are no obvious modifying factors, Recent medications: Other lovenox bid. Associated signs and symptoms: Pertinent positives: dizziness. Historical: - Allergies: 20:58 Morphine; as6 - PMHx: 20:58 blood clots; ITP; thrombocytopenia; as6 - PSHx: 20:58 Appendectomy; as6 - Immunization history:: Client reports having NOT received the Covid vaccine. - Social history:: Smoking status: Patient denies any tobacco usage or history of. ROS: 23:21 Eyes: Negative for injury, pain, redness, and discharge, ENT: Negative for injury, augustine pain, and discharge, Neck: Negative for injury, pain, and swelling, Respiratory: Negative for shortness of breath, cough, wheezing, and pleuritic chest pain, Abdomen/GI: Negative for abdominal pain, nausea, vomiting, diarrhea, and constipation, Back: Negative for injury and pain, : Negative for injury, bleeding, discharge, and swelling, Neuro: Negative for headache, weakness, numbness, tingling, and seizure, Psych: Negative for depression, anxiety, suicide ideation, homicidal ideation, and hallucinations, Allergy/Immunology: Negative for hives, rash, and allergies, Endocrine: Negative for neck swelling, polydipsia, polyuria, polyphagia, and marked weight changes, Hematologic/Lymphatic: Negative for swollen nodes, abnormal bleeding, and unusual bruising. 23:21 Constitutional: Positive for fever. 23:21 Cardiovascular: Positive for palpitations. 23:21 MS/extremity: Positive for decreased range of motion, pain, swelling, tenderness, warmth, of the left leg. Exam: 23:21 Head/Face: Normocephalic, atraumatic. Eyes: Pupils equal round and reactive to light, augustine extra-ocular motions intact. Lids and lashes normal. Conjunctiva and sclera are non-icteric and not injected. Cornea within normal limits. Periorbital areas with no swelling, redness, or edema. ENT: Nares patent. No nasal discharge, no septal abnormalities noted. Tympanic membranes are normal and external auditory canals are clear. Oropharynx with no redness, swelling, or masses, exudates, or evidence of obstruction, uvula midline. Mucous membranes moist. Neck: Trachea midline, no thyromegaly or masses palpated, and no cervical lymphadenopathy. Supple, full range of motion without nuchal rigidity, or vertebral point tenderness. No Meningismus. Chest/axilla: Normal chest wall appearance and motion. Nontender with no deformity. No lesions are appreciated. Respiratory: Lungs have equal breath sounds bilaterally, clear to auscultation and percussion. No rales, rhonchi or wheezes noted. No increased work of breathing, no retractions or nasal flaring. Abdomen/GI: Soft, non-tender, with normal bowel sounds. No distension or tympany. No guarding or rebound. No evidence of tenderness throughout. Back: No spinal tenderness. No costovertebral tenderness. Full range of motion. Male : Normal genitalia with no discharge or lesions. Skin: Warm, dry with normal turgor. Normal color with no rashes, no lesions, and no evidence of cellulitis. Neuro: Awake and alert, GCS 15, oriented to person, place, time, and situation. Cranial nerves II-XII grossly intact. Motor strength 5/5 in all extremities. Sensory grossly intact. Cerebellar exam normal. Normal gait. Psych: Awake, alert, with orientation to person, place and time. Behavior, mood, and affect are within normal limits. 23:21 Constitutional: The patient appears febrile. 23:21 ECG was reviewed by the Attending Physician. Vital Signs: 20:55 BP 127 / 78; Pulse 122; Resp 16 S; Temp 103.1(O); Pulse Ox 97% on R/A; Weight 99.79 kg as6 (R); Height 5 ft. 5 in. (R); Pain 5/10; 21:31 BP 115 / 45; Pulse 114; Resp 20 S; Pulse Ox 100% on R/A; as6 22:38 BP 134 / 62; Pulse 108; Resp 19; Temp 99.8(O); Pulse Ox 100% on R/A; mc5 23:42 BP 126 / 66; Pulse 106; Resp 21 S; Pulse Ox 97% on R/A; as6 20:55 Body Mass Index 36.61 (99.79 kg, 165.1 cm) as6 20:55 Pain Scale: Adult as6 MDM: 21:04 Patient medically screened. [facility] 23:24 Data reviewed: vital signs, nurses notes, lab test result(s), EKG, radiologic studies, augustine doppler. Consideration of Admission/Observation Patient was admitted/placed on observation. Escalation of care including admission/observation considered. I considered the following discharge prescriptions or medication management in the emergency department Medications were administered in the Emergency Department. See MAR. Test considered but Not performed: Ultrasound venous doppler. Historians other than the Patient: Spouse/Significant Other: mom in room. Care significantly affected by the following chronic conditions: itp, blood clots, thrombocytopenia. 23:53 Refusal of service: The patient/guardian displays adequate decision making capability [facility] and despite a detailed discussion of alternatives, benefits, risks, and consequences refuses: Admission to the hospital for further work-up and treatment, PT AND MON REFUSED ADMISSION ,, UNDERSTANDS INFECTION IN LEFT LOWER EXT , SEPSIS , PE , WORSENING OF CONDITION, , PAT AND MOM ACCEPT. 09/07 21:06 Order name: Acetaminophen; Complete Time: 23:13 [facility] 09/07 21:06 Order name: Basic Metabolic Panel; Complete Time: 23:13 [facility] 09/07 21:06 Order name: CBC with Diff; Complete Time: 23:13 [facility] 09/07 21:06 Order name: ETOH Level; Complete Time: 23:13 [facility] 09/07 21:06 Order name: Hepatic Function; Complete Time: 23:13 [facility] 09/07 21:06 Order name: PT-INR; Complete Time: 23:13 [facility] 09/07 21:06 Order name: Ptt, Activated; Complete Time: 23:13 [facility] 09/07 21:06 Order name: Salicylate; Complete Time: 23:13 [facility] 07 21:06 Order name: Blood Culture Adult (2) [facility] 09/07 21:06 Order name: Lactate w/ 2H reflex if indic.; Complete Time: 23:13 [facility] 09/07 21:06 Order name: Troponin High Sensitivity; Complete Time: 23:13 [facility] 09/07 21:06 Order name: CT Head Brain wo Cont; Complete Time: 23:13 [facility] 09/07 21:06 Order name: Chest Single View XRAY; Complete Time: 23:13 [facility] 09/07 21:06 Order name: EKG; Complete Time: 21:07 [facility] 09/07 21:06 Order name: EKG - Nurse/Tech; Complete Time: 21:09 [facility] 09/07 21:06 Order name: IV Saline Lock; Complete Time: 21: [facility] 09/07 21:06 Order name: Labs collected and sent; Complete Time: 21:09 [facility] 09/07 21:06 Order name: Suicide Screening ([place]); Complete Time: 21: [facility] 09/07 21:06 Order name: Seizure Precautions; Complete Time: 21:09 [facility] EC:21 Rate is 120 beats/min. Rhythm is regular. QRS [place] is Normal. AR interval is normal. [facility] QRS interval is normal. QT interval is normal. No Q waves. T waves are Normal. No ST changes noted. Clinical impression: NSR w/ Non-specific ST/T Changes and No evidence of ischemia. Interpreted by me. Reviewed by me. Administered Medications: 21:16 Drug: NS 0.9% IV 1000 ml Route: IV; Rate: 1 bolus; Site: left antecubital; mb9 23:44 Follow up: Response: No adverse reaction; IV Status: Completed infusion; IV Intake: as6 1000ml 21:16 Drug: NS 0.9% IV 1000 ml Route: IV; Rate: 1 bolus; Site: left antecubital; mb9 23:44 Follow up: Response: No adverse reaction; IV Status: Completed infusion; IV Intake: as6 1000ml 21:16 Drug: Acetaminophen PO 1000 mg Route: PO; mb9 23:43 Follow up: Response: No adverse reaction; Temperature is decreased as6 21:26 Drug: NS 0.9% IV 1000 ml Route: IV; Rate: 1 bolus; Site: right antecubital; as6 23:44 Follow up: Response: No adverse reaction as6 23:44 Follow up: Response: No adverse reaction; IV Status: Completed infusion; IV Intake: as6 1000ml 23:27 Not Given (Patient Refused): Famotidine IVP 20 mg IVP once; dilute with 10 mL 0.9% as6 NaCl; give over 2 minutes 23:27 Drug: Enoxaparin Sub-Q 100 mg Route: Sub-Q; Site: left lower abdomen; as6 23:43 Follow up: Response: No adverse reaction as6 23:42 Not Given (Patient Refused): vancoMYCIN IVPB 2 grams IVPB at calculated rate once as6 23:42 Not Given (Patient Refused): ceFAZolin IVPB 2 grams IVPB once over 30 mins; (mix in 100 as6 mL NS) Disposition Summary: 09/07/22 23:53 Discharge Ordered Location: Home augustine Problem: new augustine Symptoms: have worsened augustine Condition: Serious augustine Diagnosis - Cellulitis and acute lymphangitis of other parts of limb augustine - Venous insufficiency (chronic) (peripheral) augustine - Fever, unspecified augustine - Other seizures augustine - Abnormal levels of other serum enzymes - elevated tropinon augustine - Acute embolism and thrombosis of other specified deep vein of left lower extremity augustine - Thrombocytopenia, unspecified - HX ITP augustine Followup: augustine - With: Private Physician - When: Upon discharge from the Emergency Department - Reason: Recheck today's complaints, Continuance of care, Re-evaluation by your physician Forms: - Medication Reconciliation Form augustine - Thank You Letter augustine - Antibiotic Education augustine - Prescription Opioid Use augustine - [email or web address] augustine Signatures: Dispatcher [employer] EDMS Len Devlin MD MD cha Slawson, Ashby RN RN as6 Bea Perez RN RN mb9 Corrections: (The following items were deleted from the chart) 23:31 23:16 Extrem Venous W Compression [email or web address] ordered. EDMS EDMS
[2022-09-08 00:35] VITALS: TEMP 99.8
[2022-09-08 00:36] VITALS: BP 126/66; O2SAT 97
--- NOTE | 2022-09-09 12:33 | EKG ---
Test Date: 2022-09-07 Test Time: 20:50:06 Insulation Supervisor: YESIKA MEASUREMENT RESULTS: Intervals: Rate: 120 AK: 132 QRSD: 86 QT: 324 QTc: 457 [place]: P: 52 AK: 132 QRS: 28 T: 7 INTERPRETIVE STATEMENTS: Sinus tachycardia Inferior infarct, age undetermined Abnormal ECG Compared to ECG 08/27/2022 02:19:04 Myocardial infarct finding now present Sinus rhythm no longer present Electronically Signed On 09-09-22 12:32:38 CDT by Juarez Gallardo
== END 2022-09-07 23:57 | disposition home or self-care (01) ==
LOC: ER 20:46
DX: L03.116 Cellulitis of left lower limb (principal); L03.126 Acute lymphangitis of left lower limb; G40.89 Other seizures; I87.2 Venous insufficiency (chronic) (peripheral); R77.8 Other specified abnormalities of plasma proteins; I82.402 Acute embolism and thrombosis of unspecified deep veins of left lower extremity; D69.6 Thrombocytopenia, unspecified; Z88.5 Allergy status to narcotic agent
CPT/HCPCS: 96361; 93005; 87040 ×2; 85025; 80048; 36415; 85610; 80076; 83605; 85730; 84484; 70450; 71045; 96360; 96372; 99285; 80143; 80179; 82077; J1650; J7030

== ENCOUNTER → 2023-03-24 | Emergency (ER) | payer OTHER ==
[~2023-03-24] MED LIST: METHYLPREDNISOLONE 125 MG INJ ONE
[2023-03-24 20:46] LABS: Hematocrit 34.4 % (39.6-49.0); Lymphocytes % 26.9 % (15.3-44.8); MCV 70.8 fL (80-100); MPV 13.6 fL (7.6-11.3); Platelets 11 thou/uL (152-406); RBC Red Blood Cell Count 4.86 M/uL (4.33-5.43)
--- NOTE | 2023-03-24 21:01 | RAD REPORT ---
EXAM DESCRIPTION: RAD - Chest Single View - 03/24/2023 8:53 pm CLINICAL HISTORY: CHEST PAIN Chest pain. COMPARISON: <Comparisons> FINDINGS: Portable technique limits examination quality. The lungs are grossly clear. The heart is normal in size. No displaced fractures. IMPRESSION: No acute intrathoracic process suspected.
[2023-03-24 21:08] LABS: Potassium 4.1 mEq/L (3.5-5.1)
[2023-03-24 21:10] LABS: Blood Morphology Comment NOT SEEN (NOT SEEN); Platelet Estimate DECR; White Blood Cell Scan OK (OK)
--- NOTE | 2023-03-24 21:29 | RAD REPORT ---
EXAM DESCRIPTION: US - Extremity Venous Uni Ltd - 03/24/2023 9:21 pm CLINICAL HISTORY: LLE dvt eval Leg swelling and edema. COMPARISON: <Comparisons> FINDINGS: Left lower extremity venous system was interrogated with Doppler technique. Normal flow, c ompressibility and augmentation was noted. There is no DVT present. IMPRESSION: No evidence of left lower extremity deep venous thrombosis.
--- NOTE | 2023-03-24 22:38 | RAD REPORT ---
EXAM DESCRIPTION: CT - Chest For Pe Angio - 03/24/2023 10:24 pm CLINICAL HISTORY: Chest pain. chest pain, eval for pe COMPARISON: <Comparisons> TECHNIQUE: CT angiogram of the pulmonary arteries was performed with MIP. All CT scans are performed using dose optimization technique as appropriate and may include automated exposure control or mA/KV adjustment according to patient size. FINDINGS: No evidence of pulmonary thromboembolism. No acute aortic finding demonstrated. The lungs are clear. Mild linear atelectasis in both lung bases, greater on the right. No significant pericardial or pleural fluid. Lobulated soft tissue structures are seen in the paraspi nal region which may be related to venous collateral/varicosities. The spleen as well as the liver ap pears enlarged. Portal hypertension/venous hypertension is suspected. No concerning bony finding. IMPRESSION: No evidence of pulmonary thromboembolism. Evidence of venous collateralization is noted with large varicosities present in the chest. There is likely underlying venous and portal venous hypertension present.
--- NOTE | 2023-03-24 23:08 | ER ---
Nurse's Notes [facility] Name: Anthony Castañeda Age: 32 yrs Sex: Male : 1990 Arrival Date: 03/24/2023 Time: 20:11 Bed 18 Private MD: Diagnosis: Thrombocytopenia, unspecified;Hyperammonemia;Leg Swelling;Chest pain, unspecified Presentation: 03/24 20:23 Chief complaint: EMS states: Called to patient's house for right sided chest pain onset cm10 at 1730. Pt states that the chest pain has resolved at this time. Pt noted to have swelling and discoloration of left lower leg. Coronavirus screen: Vaccine status: Patient reports being unvaccinated. Client denies travel out of the [place] in the last 14 days. Ebola Screen: Patient denies travel to an Ebola-affected area in the 21 days before illness onset. No symptoms or risks identified at this time. Initial Sepsis Screen: Does the patient meet any 2 criteria? No. Patient's initial sepsis screen is negative. Does the patient have a suspected source of infection? No. Patient's initial sepsis screen is negative. Risk Assessment: Do you want to hurt yourself or someone else? Patient reports no desire to harm self or others. Onset of symptoms was March 24, 2023. 20:23 Method Of Arrival: EMS: [facility] cm10 20:23 Acuity: YULIET 3 cm10 20:26 Care prior to arrival: Medication(s) given: ASA, 81 mg, x 4. cm10 Triage Assessment: 20:26 General: Appears in no apparent distress. comfortable, unkempt, Behavior is calm, cm10 cooperative. Pain: Denies pain. Neuro: No deficits noted. Level of Consciousness is awake, alert, Oriented to person, place, time, situation. Cardiovascular: Reports chest pain, Patient's skin is warm and dry. Respiratory: No deficits noted. Airway is patent Respiratory effort is even, unlabored, Respiratory pattern is regular, symmetrical. GI: No deficits noted. No signs and/or symptoms were reported involving the gastrointestinal system. : No deficits noted. No signs and/or symptoms were reported regarding the genitourinary system. Derm: No deficits noted. No signs and/or symptoms reported regarding the dermatologic system. Musculoskeletal: No deficits noted. No signs and/or symptoms reported regarding the musculoskeletal system. Swelling present in left leg. Historical: - Allergies: 20:16 Morphine; cm10 - PMHx: 20:16 blood clots; ITP; thrombocytopenia; Antiphospholipid Syndrome; cm10 - PSHx: 20:16 Appendectomy; cm10 - Immunization history:: Adult Immunizations not up to date. - Social history:: Smoking status: Patient denies any tobacco usage or history of. Screenin:27 [facility] ED Fall Risk Assessment (Adult) History of falling in the last 3 months, cm10 including since admission No falls in past 3 months (0 pts) Confusion or Disorientation No (0 pts) Intoxicated or Sedated No (0 pts) Impaired Gait No (0 pts) Mobility Assist Device Used No (0 pt) Altered Elimination No (0 pt) Score/Fall Risk Level 0 - 2 = Low Risk Oriented to surroundings, Maintained a safe environment, Hourly rounding (assess needs \T\ fall precautionary measures) done. Abuse screen: Denies threats or abuse. Denies injuries from another. Nutritional screening: No deficits noted. Tuberculosis screening: No symptoms or risk factors identified. Assessment: 21:22 General: Appears uncomfortable, ill, unkempt, well developed, well nourished, Behavior me1 is calm, cooperative, appropriate for age, Reports c/o right sided chest pain onset at 1730. Pt states that the chest pain has resolved at this time. Pt noted to have swelling and discoloration of left lower leg. Pain: Denies pain. Pain: Complains of pain in anterior aspect of right upper chest Pain does not radiate. Pain currently is 7 out of 10 on a pain scale. Quality of pain is described as sharp, Pain began 4 hours ago. Is continuous. Neuro: Level of Consciousness is awake, alert, obeys commands, Oriented to person, place, time, situation, Appropriate for age. Cardiovascular: Capillary refill < 3 seconds Patient's skin is warm and dry. Respiratory: Airway is patent Respiratory effort is even, unlabored, Respiratory pattern is regular, symmetrical. Derm: Pt noted to have swelling and discoloration of left lower leg. 23:33 Reassessment: No changes from previously documented assessment. Patient and/or family me1 updated on plan of care and expected duration. Pain level reassessed. 01/18 00:00 Reassessment: Patient appears in no apparent distress at this time. No changes from km8 previously documented assessment. Patient and/or family updated on plan of care and expected duration. Pain level reassessed. 01:00 Reassessment: Patient appears in no apparent distress at this time. No changes from km8 previously documented assessment. Patient and/or family updated on plan of care and expected duration. Pain level reassessed. 02:00 Reassessment: Patient appears in no apparent distress at this time. No changes from km8 previously documented assessment. Patient and/or family updated on plan of care and expected duration. Pain level reassessed. Patient is alert, oriented x 3, equal unlabored respirations, skin warm/dry/pink. 02:32 Reassessment: report to PARISH Christianson from [facility]. 8 Vital Signs: 03/24 20:23 BP 155 / 77; Pulse 97; Resp 18 S; Temp 97.8(O); Pulse Ox 100% on R/A; Weight 113.4 kg; cm10 Height 5 ft. 5 in. ; Pain 0/10; 21:06 BP 138 / 76; Pulse 87; Resp 16; Pulse Ox 100% on R/A; me1 21:45 BP 129 / 76; Pulse 72; Resp 12; Pulse Ox 100% on R/A; me1 23:15 BP 137 / 78; Pulse 81; Resp 18; Pulse Ox 99% on R/A; me1 03/25 00:00 BP 141 / 79; Pulse 88; Resp 16; Pulse Ox 100% on R/A; km8 01:08 BP 138 / 71; Pulse 85; Resp 17 S; Pulse Ox 100% on R/A; ha1 02:00 BP 118 / 57; Pulse 82; Resp 16; Pulse Ox 100% on R/A; km8 03/24 20:23 Body Mass Index 41.60 (113.40 kg, 165.1 cm) cm10 03/24 20:23 Pain Scale: Adult cm10 ED Course: 03/24 20:13 Patient arrived in ED. cm10 20:15 Woody Cm MD is Attending Physician. ec2 20:26 Triage completed. cm10 20:26 Arm band placed on Patient placed in an exam room, on a stretcher, on cardiac monitor technician, cm10 on pulse oximetry. 20:28 Patient has correct armband on for positive identification. Placed in gown. Bed in low cm10 position. Call light in reach. Side rails up X2. Provided Education on: ER process and procedures. . Client placed on continuous cardiac and pulse oximetry monitoring. NIBP monitoring applied. Warm blanket given. 20:40 AMMONIA Sent. cm10 20:40 Basic Metabolic Panel Sent. cm10 20:40 CBC with Diff Sent. cm10 20:40 NT PRO-BNP Sent. cm10 20:40 Troponin HS Sent. cm10 20:55 XRAY Chest (1 view) In Process Unspecified. EDMS 21:02 Petty Bass, RN is Primary Nurse. me1 21:23 Extremity Venous Uni Ltd US In Process Unspecified. EDMS 21:47 Inserted saline lock: 20 gauge in right upper arm, using aseptic technique. vc1 22:06 No provider procedures requiring assistance completed. Patient maintains SpO2 me1 saturation greater than 95% on room air. 22:25 CT Chest For PE Angio In Process Unspecified. EDMS 03/25 00:00 Diet: Patient given a regular meal tray. Patient given juice. km8 01:22 Initiated transfer to [facility] spoke with Janeth. vk 02:26 Patient transferred, IV remains in place. km8 Administered Medications: 02:16 Drug: MethylPrednisoLONE IVP 125 mg IVP once Route: IVP; Site: right antecubital; ha1 02:33 Follow up: Response: No adverse reaction km8 Medication: 03/24 20:27 VIS not applicable for this client. cm10 Outcome: 23:08 ER care complete, transfer ordered by . ec2 03/25 03:13 Transferred by ground EMS to [facility], Transfer form completed. km8 Condition: stable Instructed on the need for transfer, Demonstrated understanding of instructions, 03:19 Patient left the ED. vc1 Signatures: Dispatcher [employer] EDIrish Cabral RN RN vc1 Mary Ann Bishop RN RN ha1 Ame Faulkner RN RN cm10 Petty Bass, RN PARISH okWoody Garcia MD MD ec2 Marx, Katie, RN RN km8 Merced Magana Corrections: (The following items were deleted from the chart) 03/24 21:22 20:23 Chief complaint: EMS states: Called to patient's house for right sided chest pain me1 onset at 1730. Pt states that the chest pain has resolved at this time. Pt noted to have swelling and discoloration of left lower leg. cm10
--- NOTE | 2023-03-24 23:08 | EDPHYS ---
Physician Documentation [facility] Name: Anthony Castañeda Age: 32 yrs Sex: Male : 1990 Arrival Date: 03/24/2023 Time: 20:11 Bed 18 Private MD: ED Physician Woody Cm HPI: 03/24 20:19 This 32 yrs old Male presents to ER via Unassigned with complaints of Chest ec2 Pain. 20:19 Patient arrives today for evaluation of chest pain. States that he been having ec2 left-sided chest pain ongoing for the entirety of the day. States that he has a history of blood clots. Patient reports no exertional component, states that it is worse with palpation. Denies any difficulty breathing. Reports a history of antiphospholipid syndrome as well as idiopathic thrombocytopenia.. Historical: - Allergies: 20:16 Morphine; cm10 - PMHx: 20:16 blood clots; ITP; thrombocytopenia; Antiphospholipid Syndrome; cm10 - PSHx: 20:16 Appendectomy; cm10 - Immunization history:: Adult Immunizations not up to date. - Social history:: Smoking status: Patient denies any tobacco usage or history of. ROS: 20:19 Constitutional: as per hpi ec2 Exam: 20:19 Constitutional: GEN: NAD Head: atraumatic Eyes: EOMI Ears: External ears are ec2 normal. CV: regular rate LUNGS: no respiratory distress ABD: non-distended SKIN: no evidence of rashes MSK: no evidence of trauma, reproducible chest wall TTP NEURO: moves all extremities equally Vital Signs: 20:23 BP 155 / 77; Pulse 97; Resp 18 S; Temp 97.8(O); Pulse Ox 100% on R/A; Weight 113.4 kg; cm10 Height 5 ft. 5 in. ; Pain 0/10; 21:06 BP 138 / 76; Pulse 87; Resp 16; Pulse Ox 100% on R/A; me1 21:45 BP 129 / 76; Pulse 72; Resp 12; Pulse Ox 100% on R/A; me1 23:15 BP 137 / 78; Pulse 81; Resp 18; Pulse Ox 99% on R/A; me1 03/25 00:00 BP 141 / 79; Pulse 88; Resp 16; Pulse Ox 100% on R/A; km8 01:08 BP 138 / 71; Pulse 85; Resp 17 S; Pulse Ox 100% on R/A; ha1 02:00 BP 118 / 57; Pulse 82; Resp 16; Pulse Ox 100% on R/A; km8 03/24 20:23 Body Mass Index 41.60 (113.40 kg, 165.1 cm) cm10 03/24 20:23 Pain Scale: Adult cm10 MDM: 03/24 20:15 Patient medically screened. ec2 20:19 ED course: Patient arrives today for left-sided chest pain. Examination remarkable for ec2 MSK findings as noted above. Will obtain a cardiac workup, evaluate for PE.. 20:27 Data reviewed: vital signs. ED course: Patient also with left lower extremity swelling, ec2 history of DVT in that leg, supposed to be on blood thinners however has not been taking.. 21:15 ED course: Metabolic profile is reassuring. CBC shows slight anemia, does have marked ec2 thrombocytopenia with a platelet count of 11. Ammonia level elevated at 133. Troponin within normal ranges. Chest x-ray shows no acute intrathoracic process. . 22:56 ED course: CT scan of the chest shows no evidence of PE. Doppler ultrasound shows no ec2 evidence of lower extremity DVT. . 03/25 02:02 ED course: I discussed case with the transferring center, agrees accept the patient for ec2 transfer at [facility].. 03/24 20:16 Order name: Basic Metabolic Panel; Complete Time: 21:14 ec2 03/24 20:16 Order name: CBC with Diff; Complete Time: 21:14 ec2 03/24 20:16 Order name: NT PRO-BNP; Complete Time: 21:14 ec2 03/24 20:16 Order name: Troponin HS; Complete Time: 21:14 ec2 03/24 20:16 Order name: AMMONIA; Complete Time: 21:14 ec2 03/24 20:57 Order name: CBC Smear Scan; Complete Time: 21:14 EDMS 03/24 20:16 Order name: XRAY Chest (1 view); Complete Time: 21:14 ec2 03/24 20:16 Order name: CT Chest For PE Angio; Complete Time: 22:56 ec2 03/24 20:27 Order name: Extremity Venous Uni Ltd US; Complete Time: 22:56 ec2 03/24 20:16 Order name: EKG; Complete Time: 20:16 ec2 03/24 20:16 Order name: Cardiac monitoring; Complete Time: 20:29 ec2 03/24 20:16 Order name: EKG - Nurse/Tech; Complete Time: 20:59 ec2 03/24 20:16 Order name: IV Saline Lock; Complete Time: 21:48 ec2 03/24 20:16 Order name: Labs collected and sent; Complete Time: 20:40 ec2 03/24 20:16 Order name: O2 Per Protocol; Complete Time: 20:29 ec2 03/24 20:16 Order name: O2 Sat Monitoring; Complete Time: 20:29 ec2 Administered Medications: 02:16 Drug: MethylPrednisoLONE IVP 125 mg IVP once Route: IVP; Site: right antecubital; ha1 02:33 Follow up: Response: No adverse reaction km8 Disposition Summary: 03/24/23 23:08 Transfer Ordered Notes: Reason: Higher level of care ec2 Condition: Stable ec2 Problem: an acute exacerbation ec2 Symptoms: are unchanged ec2 Transfer Location: [facility](03/25/23 02:19) ec2 Accepting Physician: Dr. Dunham(03/25/23 03:19) vc1 Diagnosis - Thrombocytopenia, unspecified ec2 - Hyperammonemia ec2 - Leg Swelling ec2 - Chest pain, unspecified ec2 Forms: - Medication Reconciliation Form ec2 - SBAR form ec2 Signatures: Dispatcher [employer] EDMS Irish Arnold RN RN vc1 Mary Ann Bishop RN RN ha1 Ame Faulkner RN RN cm10 Woody Cm MD MD ec2 Atiya Elias RN km8 Corrections: (The following items were deleted from the chart) 02:19 03/24 23:08 transferring doc ec2 ec2 03/25 02:19 03/24 23:08 Other Acute Care Facility ec2 ec2 03/25 02:22 02:19 transferring doc ec2 ec2 02:27 02:22 Dr. Dunham ec2 ec2 03:19 02:27 Dr. Dunham ec2 vc1
[2023-03-25 10:36] VITALS: TEMP 97.8; O2SAT 100
[2023-03-25 10:49] VITALS: BP 118/57
== END ==
LOC: ER 20:11
DX: R07.89 Other chest pain (principal); D69.6 Thrombocytopenia, unspecified; E72.20 Disorder of urea cycle metabolism, unspecified; R22.43 Localized swelling, mass and lump, lower limb, bilateral; Z88.5 Allergy status to narcotic agent
CPT/HCPCS: 85025; 80048; 36415; 82140; 84484; 83880; 71275; 71045; 93971; Q9967; 93005

== ENCOUNTER 2023-12-28 13:55 | Emergency (ER) | payer OTHER ==
[2023-12-28] MEDS ORDERED: LORazepam 2 MG/ML VIAL ONE (14:31)
[2023-12-28] MEDS ORDERED: NA CHLORIDE 0.9% 1,000 ML ONE ×2 (14:37→15:23)
--- NOTE | 2023-12-28 14:42 | RAD REPORT ---
EXAMINATION: ONE VIEW CHEST XR CLINICAL INDICATION: Male, 33 years old.syncope TECHNIQUE: 1 View, AP supine, X-ray of the chest was performed. [id number]. COMPARISON: 03/24/2023 FINDINGS: Lungs and pleura: Diffuse prominence of the pulmonary vasculature. No effusion. Heart and mediastinum: Cardiomegaly. Unremarkable mediastinal contours. Osseous structures: No acute abnormality. Tubes/lines: None Other: None. IMPRESSION: Probable pulmonary vascular congestion.
[2023-12-28] MEDS ORDERED: FLUMAZENIL 0.1 MG/ML (5 mL VIAL) IV ONE (14:45)
[2023-12-28] MEDS ORDERED: MANNITOL 20% 500 ML IV ONE (15:11)
--- NOTE | 2023-12-28 15:15 | RAD REPORT ---
EXAMINATION: CT HEAD WITHOUT CONTRAST CT CERVICAL SPINE WITHOUT CONTRAST CLINICAL INDICATION: Male, 33 years old. Pain;Trauma TECHNIQUE: Axial CT images from the skull base to the vertex without intravenous contrast. Axial CT i mages through the cervical spine were obtained without intravenous contrast. Sagittal and coronal reformatted images were created from the data set. Coronal and sagittal reformatted images were creat ed from the data set. One or more of the following dose reduction techniques were used: Automated exposure control, adjustment of the mA and/or kV according to patient size, and/or iterative reconstr uction. Unless otherwise specified, incidental findings do not require dedicated imaging follow-up. [id number]. COMPARISON: No prior exam. FINDINGS: Head: INTRACRANIAL: Large right-sided extra-axial hemorrhage measuring up to 2.1 cm in maximal thickness. T here is significant right to left midline shift with dilatation of the ventricular system, best seen at the left temporal horn. There is effacement of the basilar cisterns consistent with uncal her niation as well as subfalcine herniation. VASCULATURE: No visualized abnormalities in the arteries or dural venous sinuses. SCALP/SKULL: No significant soft tissue or osseous abnormalities. SINUSES: The visualized paranasal sinuses and mastoid air cells are predominantly clear. Cervical spine: ALIGNMENT: The cervical spine has normal alignment without scoliosis or spondylolisthesis. BONE: Vertebral body heights are maintained. No aggressive osseous lesions. DEGENERATIVE CHANGES: None significant. SOFT TISSUE: Airspace disease in the upper lungs bilaterally could represent atelectasis or aspiratio n. Endotracheal tube and enteric tube. IMPRESSION: 1. Large right-sided extra-axial hemorrhage, possibly epidural. Significant right to left midline michael ft. There is evidence of subfalcine and uncal herniation. Developing hydrocephalus. No skull fracture. 2. No acute fracture or traumatic malalignment of the cervical spine. Conveyed to [facility] Mcneal by Dr. Pennington at 1510 on 12/28/23
--- NOTE | 2023-12-28 15:27 | RAD REPORT ---
EXAMINATION: ONE VIEW CHEST XR CLINICAL INDICATION: Male, 33 years old.POST ETT TECHNIQUE: 1 View, AP supine, X-ray of the chest was performed. [id number]. COMPARISON: 12/28/2023 FINDINGS: The endotracheal tube terminates at the level of the esther. Enteric tube overlies the stomach. The side port terminates at the distal esophagus. IMPRESSION: ET tube terminates at the level of the esther. Recommend retraction by 2 cm. The enteric tube terminates overlying the stomach with proximal side-port at the distal esophagus. Th is could be advanced another 7 cm for more optimal positioning. It did coil in the back of the oropharynx.
[2023-12-28] MEDS ORDERED: NOREPINEPHRINE BITARTRATE/D5W 4 MG/250 ML KIT IV ONE (15:43)
[2023-12-28 15:45] LABS: Absolute Eosinophils 0.1 K/uL (0-0.5); Absolute Lymphocytes (CBC) 0.6 K/uL (0.7-4.9); Absolute Monocytes 0.2 K/uL (0.1-1.3); Absolute Neutrophil 1.8 K/uL (1.8-8.0); Basophils % 1.8 % (0-1.3); Hematocrit 26.7 % (39.6-49.0); Hemoglobin 8.1 g/dL (13.6-17.9); Lymphocytes % 21.2 % (15.3-44.8); MCH 19.8 pg (27.0-35.0); MCHC 30.2 g/dL (32.0-36.0); MCV 65.8 fL (80-100); MPV 8.7 fL (7.6-11.3); Monocytes % 6.6 % (3.3-12.3); Neutrophils % 65.4 % (41.7-73.7); Nucleated Red Blood Cells % 0.1 % (0-0); RBC Red Blood Cell Count 4.06 M/uL (4.33-5.43); Red Cell Distribution Width 20.6 % (12.1-15.2)
--- NOTE | 2023-12-28 15:45 | ER ---
Nurse's Notes [facility] Name: Anthony Castañeda Age: 33 yrs Sex: Male : 1990 Arrival Date: 12/28/2023 Time: 13:55 Bed 2 Private MD: Diagnosis: Large right sided extra-axial hemorrhage with significant [id number] midline shift;Fall on same level, unspecified;Syncope;Other seizures Presentation: 12/27 14:00 Chief complaint: EMS states: Called to patients home due to patient complaining of cm10 headache for the last few weeks. Pt has been falling recently and complaining of neck pain. Pt arrived awake and alert covered in feces. Pt has noted swelling to left lower leg. 14:00 Method Of Arrival: EMS: [facility] cm10 14:00 Coronavirus screen: Client denies travel out of the [place] in the last 14 days. Ebola cm10 Screen: Patient denies travel to an Ebola-affected area in the 21 days before illness onset. No symptoms or risks identified at this time. Initial Sepsis Screen: Does the patient meet any 2 criteria? HR > 90 bpm. Does the patient have a suspected source of infection? No. Patient's initial sepsis screen is negative. Risk Assessment: Do you want to hurt yourself or someone else? Patient reports no desire to harm self or others. Onset of symptoms was December 28, 2023. 14:00 Acuity: YULIET 2 cm10 Triage Assessment: 14:00 General: Appears in no apparent distress. comfortable, Behavior is calm, cooperative. cm10 General: Pt reports that he has been having syncopal episodes and he passes out every time that he stands. Pt states that he fell this morning but does not know at what time he fell.. Neuro: No deficits noted. Level of Consciousness is awake, alert, obeys commands, Oriented to person, place, time, situation, Appropriate for age. Respiratory: No deficits noted. Airway is patent Respiratory effort is even, unlabored, Respiratory pattern is regular, symmetrical. Derm: Swelling, redness and discoloration noted to pts left lower leg. Pt noted to have bruising to his right upper arm. 14:00 Headache History: The patient has had previous headaches and this one is similar to cm10 previous episodes. Pain: Complains of pain in head Pain Pain began Months ago. 16:17 Pain: Also complains of no other associated symptoms. cm10 Historical: - Allergies: 15:12 Morphine; cm10 - PMHx: 15:12 antiphospholipid syndrome; blood clots; ITP; thrombocytopenia; Seizure; cm10 - PSHx: 15:12 Appendectomy; cm10 - Immunization history:: Adult Immunizations up to date. - Infectious Disease History:: Denies. - Social history:: Smoking status: unknown. Screenin:[facility] ED Fall Risk Assessment (Adult) History of falling in the last 3 months, cm10 including since admission Yes- fall prone (multiple falls) (3 pts) Confusion or Disorientation No (0 pts) Intoxicated or Sedated No (0 pts) Impaired Gait No (0 pts) Mobility Assist Device Used No (0 pt) Altered Elimination Yes (1 pt) Score/Fall Risk Level 3 or more points = High Risk Oriented to surroundings, Maintained a safe environment, Hourly rounding (assess needs \T\ fall precautionary measures) done. 14:15 Abuse screen: Denies threats or abuse. Denies injuries from another. Nutritional cm10 screening: No deficits noted. Tuberculosis screening: No symptoms or risk factors identified. Assessment: 14:30 General: Pt having seizure at this time. Provider made aware. Ativan ordered. Pt cm10 medicated per MAY.. 14:35 Reassessment: Pt post-ictal at this time. Non-rebreather on patient. Pt on cardiac cm10 monitoring.. 14:45 General: Pt noted to not be breathing at this time. Pt being bagged. Dr. Coto to cm10 bedside. Pt continues to have pulse.. 14:50 General: Pt being emergently intubated at this time by dr. coto . cm10 14:51 General: Pt intubated at this time. 7.5fr ETT, 23 at the teeth. cm10 14:53 General: NG tube placed at this time.. cm10 15:00 Neuro: Level of Consciousness is unresponsive, Oriented to none. Cardiovascular: Rhythm cm10 is sinus tachycardia. Respiratory: Airway via oral intubation Ventilator assessment: ET Tube: 7.0 21cm. HOB > 30 degrees. Vital Signs: 14:00 Weight 108.86 kg; cm10 14:52 BP 180 / 95; Pulse 139; Pulse Ox 97% on Ambu bag; cm10 15:00 BP 114 / 65; Pulse 131; Resp 18; Pulse Ox 100% on ETT vent; cm10 15:10 BP 81 / 51; Pulse 124; Resp 24; Pulse Ox 98% on ETT vent; cm10 15:11 Weight 108.86 kg; ko1 15:13 BP 86 / 49; Pulse 121; Resp 24; Pulse Ox 98% on ETT vent; MAP 61 mmHg; cm10 15:20 BP 79 / 50; Pulse 122; Resp 24; Pulse Ox 98% on ETT vent; MAP 60 mmHg; cm10 15:25 BP 82 / 50; Pulse 117; Resp 24; Pulse Ox 98% on ETT vent; cm10 15:30 BP 84 / 47; Pulse 112; Resp 24; Pulse Ox 98% on ETT vent; MAP 59 mmHg; cm10 15:35 BP 86 / 44; Pulse 109; Resp 24; Pulse Ox 98% on ETT vent; cm10 15:40 BP 210 / 137; Pulse 111; Resp 24; Pulse Ox 99% on ETT vent; cm10 15:41 Temp 94.5(Ca); cm10 15:45 BP 191 / 112; Pulse 134; Resp 24; Pulse Ox 100% on ETT vent; cm10 15:46 Temp 95.2(Ca); cm10 ED Course: 13:58 Patient arrived in ED. kb 13:58 Octavia Mcneal FNP-C is PHCP. kb 13:58 Christian Pittman DO is Attending Physician. kb 14:00 Arm band placed on Patient placed in an exam room, on a stretcher. cm10 14:00 One-on-one care X 15 minutes. cm10 14:15 One-on-one care X 15 minutes. cm10 14:15 Patient has correct armband on for positive identification. Bed in low position. cm10 Provided Education on: ER process and procedures.. 14:30 One-on-one care X 15 minutes. cm10 14:30 Client placed on continuous cardiac and pulse oximetry monitoring. NIBP monitoring cm10 applied. recreation manager on. 14:30 Inserted saline lock: 20 gauge in right antecubital area, using aseptic technique. cm10 Flushed with 10 mL NS. 14:34 Chest Single View XRAY In Process Unspecified. EDMS 14:45 One-on-one care X 15 minutes. cm10 14:51 Assisted provider with intubation using 7.5 mm ETT via oral route. ET tube secured at cm10 21cm at the teeth. Set up intubation tray. Intubated by Mayur Coto MD Placement verified by CXR, Patient tolerated well. 14:52 Attending Physician role handed off by Christian Pittman DO rn 14:52 Mayur Coto MD is Attending Physician. rn 14:52 Inserted saline lock: 20 gauge in left antecubital area, using aseptic technique. cm10 Flushed with 10 mL NS. 14:53 OG tube. cm10 14:56 RN/ROTARY KILN OPERATOR escort patient out of department to CT scan with oxygen, loss prevention agent, cm10 Respiratory therapist. 15:00 One-on-one care X 15 minutes. cm10 15:06 CT Head C Spine In Process Unspecified. EDMS 15:12 Triage completed. cm10 15:15 One-on-one care X 15 minutes. cm10 15:22 Chest Single View XRAY In Process Unspecified. EDMS 15:29 Ame Faulkner, RN is Primary Nurse. cm10 15:30 One-on-one care X 15 minutes. cm10 15:36 Panchal cath inserted, using sterile technique, 16 Fr., by ED staff, balloon inflated. cm10 15:41 Thermoregulation: Lencho blanket applied. cm10 15:52 Notified Nurse Practitioner and/or Physician Molder Hand of a critical lab result(s), ll1 platelet 7. 15:53 Report given to Sabina at [facility]. cm10 15:56 pt accepted in transfer to [facility] [address] A rm [address]ome, admin approval given bd by Osei Jeffrey. 16:00 Report given to Sp with [facility] who assumes care of patient. pt stable for cm10 transfer at this time. 16:00 EKG done, by ED staff, reviewed by Mayur Coto MD. cm10 16:17 Patient transferred, IV remains in place. cm10 Administered Medications: 14:32 Drug: Ativan IVP 2 mg IVP once Route: IVP; Site: right antecubital; cm10 15:22 Follow up: Response: No adverse reaction cm10 14:35 Drug: NS 0.9% IV 1000 ml IV at 1000 ml once; to be given as a bolus over 60 minutes cm10 Route: IV; Rate: 1000 ml; Site: right antecubital; 16:12 Follow up: Response: No adverse reaction; IV Status: Completed infusion; IV Intake: cm10 1000ml 14:48 Drug: Flumazenil IVP 0.2 mg IVP once; Over 15 seconds Route: IVP; Site: right cm10 antecubital; 15:22 Follow up: Response: No adverse reaction cm10 15:10 Drug: NS 0.9% IV 1000 ml IV at 1000 ml once; to be given as a bolus over 60 minutes cm10 Route: IV; Rate: 1000 ml; Site: left antecubital; 16:14 Follow up: Response: No adverse reaction; IV Status: Completed infusion; IV Intake: cm10 1000ml 15:20 Drug: Mannitol IV 20% 1 g/kg 500 ml IV at calculated rate once; Administer over 30 to cm10 60 minutes Volume: 500 ml; Route: IV; Rate: calculated rate; Site: right antecubital; 16:11 Follow up: Response: No adverse reaction; IV Status: Completed infusion; IV Intake: cm10 500ml 16:12 Not Given (Hemodynamic Parameters): norepinephrine0.1 mcg/kg/min IV at calculated rate cm10 See Administration Instructions; (Standard concentration 4 mg / 250 mL D5W); Recommended max rate 3 mcg/kg/min; Titrate 0.05 mcg/kg/min as often as every 5 minutes to achieve goal (see titration policy); Goal parameter MAP greater than 65 mmHg. Medication: 16:17 VIS not applicable for this client. cm10 Intake: 16:11 IV: 500ml; Total: 500ml. cm10 16:12 IV: 1000ml; Total: 1500ml. cm10 16:14 IV: 1000ml; Total: 2500ml. cm10 Outcome: 15:44 ER care complete, transfer ordered by . kb 16:15 Transferred by [facility]. to [facility], 10 16:15 Condition: stable 16:15 Instructed on the need for transfer, 16:17 Patient left the ED. cm10 Signatures: Dispatcher [employer] EDMS Octavia Mcneal FNP-C FNP-Marily Loco Roman, MD MD rn Lewis, Lynsay, RN RN ll1 Alexandria Malcolm RN RN ko1 [place]ush[place], Ame, RN RN cm10 Corrections: (The following items were deleted from the chart) 16:26 15:13 BP 114 / 65; Pulse 131bpm; Resp 18bpm; Pulse Ox 100% ET / Ventilator; cm10 cm10 16: 14:30 General: Pt having seizure at this time.. cm10 cm10 16: 14:45 General: Pt noted to not be breathing at this time. Pt being bagged. Dr. Coto to cm10 bedside.. cm10 16:28 14:35 Reassessment: Pt post-ictal at this time.. cm10 cm10
--- NOTE | 2023-12-28 15:45 | EDPHYS ---
Physician Documentation [facility] Name: Anthony Castañeda Age: 33 yrs Sex: Male : 1990 Arrival Date: 12/28/2023 Time: 13:55 Bed 2 Private MD: ED Physician Mayur Coto HPI: 12/27 14:05 This 33 yrs old Male presents to ER via Unassigned with complaints of syncope. kb 14:05 Pt is a 33 year old male who presents for daily headaches over the past few months and kb multiple syncopal episodes today. States he gets dizzy and passes out every time he tries to stand up. Reports head and neck pain from a fall sometime this morning. Denies any other pain or injuries. Pt has a history of ITP and antiphospholipid syndrome.. Historical: - Allergies: 15:12 Morphine; cm10 - PMHx: 15:12 antiphospholipid syndrome; blood clots; ITP; thrombocytopenia; Seizure; cm10 - PSHx: 15:12 Appendectomy; cm10 - Immunization history:: Adult Immunizations up to date. - Infectious Disease History:: Denies. - Social history:: Smoking status: unknown. ROS: 14:10 Constitutional: As per HPI kb Exam: 15:02 Constitutional: This is a well developed, well nourished patient who is awake, alert, kb and in no acute distress. Head/Face: Normocephalic, atraumatic. ENT: Moist Mucous membranes Cardiovascular: Regular rate Respiratory: Respirations even and unlabored. No increased work of breathing. Talking in full sentences Abdomen/GI: Soft, non-tender. No distention Back: No spinal tenderness. No costovertebral tenderness. Full range of motion. MS/ Extremity: Pulses equal, no cyanosis. Neurovascular intact. Full, normal range of motion. Neuro: Awake and alert, oriented to person, place, time, and situation. 15:02 Skin: bruising to right upper arm that pt states is not new. Discoloration to left lower extremity that pt reports is chronic. 16:01 ECG was reviewed by the Attending Physician. kb Vital Signs: 14:00 Weight 108.86 kg; cm10 14:52 BP 180 / 95; Pulse 139; Pulse Ox 97% on Ambu bag; cm10 15:00 BP 114 / 65; Pulse 131; Resp 18; Pulse Ox 100% on ETT vent; cm10 15:10 BP 81 / 51; Pulse 124; Resp 24; Pulse Ox 98% on ETT vent; cm10 15:11 Weight 108.86 kg; ko1 15:13 BP 86 / 49; Pulse 121; Resp 24; Pulse Ox 98% on ETT vent; MAP 61 mmHg; cm10 15:20 BP 79 / 50; Pulse 122; Resp 24; Pulse Ox 98% on ETT vent; MAP 60 mmHg; cm10 15:25 BP 82 / 50; Pulse 117; Resp 24; Pulse Ox 98% on ETT vent; cm10 15:30 BP 84 / 47; Pulse 112; Resp 24; Pulse Ox 98% on ETT vent; MAP 59 mmHg; cm10 15:35 BP 86 / 44; Pulse 109; Resp 24; Pulse Ox 98% on ETT vent; cm10 15:40 BP 210 / 137; Pulse 111; Resp 24; Pulse Ox 99% on ETT vent; cm10 15:41 Temp 94.5(Ca); cm10 15:45 BP 191 / 112; Pulse 134; Resp 24; Pulse Ox 100% on ETT vent; cm10 15:46 Temp 95.2(Ca); cm10 Procedures: 14:53 Intubation: Ventilated with 100% NRB prior to procedure. O2 saturation prior to terrazzo journeyman was 95 %. Intubated orally using # 4 Carlos blade with 7.5 mm ETT. was successful on first attempt. Cricoid pressure applied during procedure. Tube secured with ETT ortiz at right side of mouth measured 23 cm at teeth. Placement verified by CO2 detector with (+) color change, auscultating bilateral breath sounds, O2 saturation after procedure was 97 %. Patient tolerated well. MDM: 13:58 Medical Screening Exam initiated kb 14:12 Data reviewed: vital signs, nurses notes. kb 14:53 ED course: Called emergently to patient's room as patient was noted to become apneic. rn Patient immediately bagged on oxygen, oxygen dipped to 50% but easily backed up to 95%. Decision made to intubate for airway protection as patient had no spontaneous movement or breathing. Patient also needs CT given possible bleeding risk and trauma.. 15:00 ED course: Pt had a seizure at approx 1430, was given ativan, seizure activity resolved kb and respirations became even then pt became apneic. Dr. Coto was called to the room and intubated the patient. Prior to seizure patient was awake, alert and oriented x 4. Was able to roll ltyy-my-ytot for cleaning and answer all questions.. 15:17 Differential Diagnosis: cardiac arrhythmia, idiopathic syncope, seizure, ICH. kb Consideration of Admission/Observation Escalation of care including admission/observation considered. pt will be transferred for trauma/neurosurgery. Historians other than the Patient: EMS: [facility]. 15:35 Management of patient was discussed with the following: Dr Petersen, trauma at [facility] kb recommends neurosurgery as primary. Dr Jacome, neurosurgery at [facility] accepts pt for transfer. . 15:54 ED course: Updated mother via phone. Informed of pt's condition, need for transfer and kb room number at [facility]. . 12/27 13:59 Order name: Basic Metabolic Panel; Complete Time: 16:11 kb 12/27 13:59 Order name: CBC with Diff; Complete Time: 14:39 kb 12/27 13:59 Order name: Hepatic Function; Complete Time: 16:11 kb 12/27 13:59 Order name: Magnesium; Complete Time: 16:11 kb 12/27 13:59 Order name: Protime (+inr); Complete Time: 16:14 kb 12/27 13:59 Order name: Ptt, Activated; Complete Time: 16:14 kb 12/27 13:59 Order name: Troponin High Sensitivity; Complete Time: 16:11 kb 12/27 13:59 Order name: AMMONIA; Complete Time: 16:01 kb 12/27 15:38 Order name: Creatine Phosphokinase; Complete Time: 16:11 EDMS 12/27 13:59 Order name: CT Head C Spine; Complete Time: 15:19 kb 12/27 13:59 Order name: Chest Single View XRAY; Complete Time: 14:42 kb 12/27 15:12 Order name: Chest Single View XRAY; Complete Time: 15:31 cm10 12/27 13:59 Order name: Cardiac monitoring; Complete Time: 14:09 kb 12/27 13:59 Order name: EKG - Nurse/Tech; Complete Time: 16:02 kb 12/27 13:59 Order name: IV Saline Lock; Complete Time: 16:28 kb 12/27 13:59 Order name: Labs collected and sent; Complete Time: 16:02 kb 12/27 13:59 Order name: NPO; Complete Time: 14:09 kb 12/27 13:59 Order name: O2 Per Protocol; Complete Time: 14:09 kb 12/27 13:59 Order name: O2 Sat Monitoring; Complete Time: 14:09 kb 12/27 15:09 Order name: Panchal; Complete Time: 15:21 kb EC:01 Rate is 120 beats/min. Rhythm is regular. QRS [place] is Normal. NH interval is normal at kb 146 msec. QRS interval is normal at 98 msec. QT interval is normal at 474 msec. Administered Medications: 14:32 Drug: Ativan IVP 2 mg IVP once Route: IVP; Site: right antecubital; cm10 15:22 Follow up: Response: No adverse reaction cm10 14:35 Drug: NS 0.9% IV 1000 ml IV at 1000 ml once; to be given as a bolus over 60 minutes cm10 Route: IV; Rate: 1000 ml; Site: right antecubital; 16:12 Follow up: Response: No adverse reaction; IV Status: Completed infusion; IV Intake: cm10 1000ml 14:48 Drug: Flumazenil IVP 0.2 mg IVP once; Over 15 seconds Route: IVP; Site: right cm10 antecubital; 15:22 Follow up: Response: No adverse reaction cm10 15:10 Drug: NS 0.9% IV 1000 ml IV at 1000 ml once; to be given as a bolus over 60 minutes cm10 Route: IV; Rate: 1000 ml; Site: left antecubital; 16:14 Follow up: Response: No adverse reaction; IV Status: Completed infusion; IV Intake: cm10 1000ml 15:20 Drug: Mannitol IV 20% 1 g/kg 500 ml IV at calculated rate once; Administer over 30 to cm10 60 minutes Volume: 500 ml; Route: IV; Rate: calculated rate; Site: right antecubital; 16:11 Follow up: Response: No adverse reaction; IV Status: Completed infusion; IV Intake: cm10 500ml 16:12 Not Given (Hemodynamic Parameters): norepinephrine0.1 mcg/kg/min IV at calculated rate cm10 See Administration Instructions; (Standard concentration 4 mg / 250 mL D5W); Recommended max rate 3 mcg/kg/min; Titrate 0.05 mcg/kg/min as often as every 5 minutes to achieve goal (see titration policy); Goal parameter MAP greater than 65 mmHg. Disposition: 15:45 Critical Care:. rn 17:39 I was immediately available on-site in the Emergency Department for consultation in the ms3 care of the patient. Disposition Summary: 12/28/23 15:44 Transfer Ordered Notes: Transfer Location: [facility] kb Reason: Higher level of care kb Problem: new kb Symptoms: are unchanged kb Condition: Critical(12/28/23 15:45) kb Accepting Physician: Dr Jacome(12/28/23 16:17) cm10 Diagnosis - Large right sided extra-axial hemorrhage with significant [id number] midline kb shift - Fall on same level, unspecified kb - Syncope kb - Other seizures kb Forms: - Medication Reconciliation Form kb - SBAR form kb Critical care time excluding procedures: 15:45 Critical care time: Bedside Care: 35 minutes. Total time: 35 minutes rn 15:45 Critical care time: Bedside Care: 15 minutes, Consultation: 15 minutes. Total time: 30 kb minutes Signatures: Dispatcher [employer] EDID Octavia Mcneal, CAR SALTER-C CAR SALTER-Ckb Mayur Coto MD MD rn Sims, Marcus, DO ms3 Ame Faulkner, RN RN cm10 Corrections: (The following items were deleted from the chart) 14:00 13:59 Chest Single View+RAD.RAD.BRZ ordered. EDID EDID 14:10 14:05 Pt is a 33 year old male who presents for daily headaches over the past few kb months and multiple syncopal episodes today. States he gets dizzy and passes out every time he tries to stand up. Reports head and neck pain from a fall sometime this morning. Denies any other pain or injuries. . kb 15:38 14:35 CREATINE PHOSPHOKINASE+C.LAB.BRZ ordered. EDID EDMS 15:45 15:44 Dr Ayaz burnett kb 15:45 15:44 Stable kb kb 16:17 15:45 Dr Jacome kb cm10
[2023-12-28 15:53] LABS: Platelets 7 thou/uL (152-406)
[2023-12-28 16:06] LABS: Albumin 2.6 g/dL (3.4-5.0); Albumin/Globulin Ratio 0.5 (1.1-1.8); Anion Gap 8.6 mEq/L (5.0-15.0); Bilirubin Direct 0.5 mg/dL (0-0.2); Bilirubin Indirect, Calculated 0.3 mg/dL (0.2-0.8); Bilirubin Total 0.8 mg/dL (0.2-1.0); Globulin 5.3 g/dL (2.3-3.5); Magnesium 1.9 mg/dL (1.6-2.4); Potassium 3.6 mEq/L (3.5-5.1); Protein, Total 7.9 g/dL (6.4-8.2)
[2023-12-28 16:14] LABS: PT Prothrombin Time 16.8 SECONDS (9.4-12.5); PTT, Activated Partial Thromb 117.1 SECONDS (24.3-36.9); Protime INR 1.52
[2023-12-28 16:26] LABS: Anisocytosis 1+; Blood Morphology Comment NOTED (NOT SEEN); Platelet Estimate DECR; Poikilocytosis 1+; White Blood Cell Scan OK (OK)
[2023-12-28 19:37] VITALS: BP 114/65; O2SAT 100
[2023-12-28 19:38] VITALS: TEMP 95.2
--- NOTE | 2023-12-30 12:22 | EKG ---
Test Date: 2023-12-28 Test Time: 15:55:52 [employer] Superintendent: ALP MEASUREMENT RESULTS: Intervals: Rate: 120 AR: 146 QRSD: 98 QT: 336 QTc: 474 [place]: P: 67 AR: 146 QRS: 71 T: 53 INTERPRETIVE STATEMENTS: Sinus tachycardia Otherwise normal ECG Compared to ECG 03/24/2023 20:55:53 Sinus rhythm no longer present Electronically Signed On 12-30-23 12:16:59 CDT by Vicente Wayne
== END 2023-12-28 16:17 | disposition short-term general hospital (02) ==
LOC: ER 13:55
DX: I62.1 Nontraumatic extradural hemorrhage (principal); G40.89 Other seizures; W18.30XA Fall on same level, unspecified, initial encounter; D68.61 Antiphospholipid syndrome
CPT/HCPCS: 96365; 96361; 93005; 85025; 80048; 36415; 82140; 83735; 82550; 85610; 80076; 85730; 84484; 70450; 72125; 71045 ×2; 31500; 51702; 96375; 99291; 94002; J7030 ×2